=== PATIENT | male | born 1945 | race Caucasian/White ===

== ENCOUNTER 2020-06-05 12:22 | Outpatient (RCR) | payer OTHER, MEDICAID, SELFPAY ==
--- NOTE | 2020-06-05 14:17 | PTOPEVAL ---
Thank you for referring Levi Ramos to [facility].? No additional skilled therapy services are skilled due to unable to determine cause for recent falls based on balance or vestibular testing. Will hold chart open for 2 weeks for Levi to contact our facility if status changes. Please review, sign, date and return this plan of care MEGHANN. I agree with and certify that the following plan of care is medically necessary. Referring Physician Date Attending Provider: Miky Euceda DO Referring Provider: Miky Euceda DO *PT Outpatient Evaluation Start: 06/05/20 12:29 Freq: Status: Active Protocol: Document 06/05/20 12:30 CAP (Rec: 06/05/20 13:40 CAP [id number]) Therapy Assessment Status Assessment Status Assessment Status Evaluation Outpatient Past Medical History Past Medical History Source of Past Medical History Patient,Recalled from Previous Visit, Confirmed with Patient /Family Neurological History Hx Seizures Yes Hx Transient Ischemic Attacks (TIA) Yes: per pt: 2017 Cardiovascular History Hx Coronary Artery Disease Yes Hx Hypertension Yes Musculoskeletal History Hx Back Pain Yes: stenosis Hx Orthopedic Surgery Yes: arthroscopic knee surgery Evaluation Information Problem Diagnosis gt abnormalities Onset 6 months Cause unknown Additional Evaluation Detail he had a fall from bridge in 1995, denies any fractures, but herniated disc. Unsure of a head injury. Subjective Information Start of therapy pt states I Query Text:As Reported By Patient/ don't want to be here! Family States his last fall was 3 wks ago. He sometimes does not pick-up his foot when walking. 3-4 falls in the past 6 months. FAlls forward or to side, usually catching self with UE's. His falls usually occur outside. He works around the yard taking care of the animals, yardwork, hunting. States he will walk 3 miles a day on his [place]. Per , pt does not eat lunch when consistently during the day. Pain Assessment Timing of Pain Assessment Timing of Pain Assessment Assessment Self Report Self Report Pain Level 0 Pain Score Pain Score
== END 2020-07-02 12:50 | disposition home or self-care (01) ==
LOC: ANHPT 12:22
PROVIDERS: Family Provider Family Medicine; PCP Internal Medicine; Referring Provider Internal Medicine; Visit Provider Internal Medicine
DX: R26.89 Other abnormalities of gait and mobility (principal)
CPT/HCPCS: 97162; 97530

== ENCOUNTER 2020-07-29 09:27 | Outpatient (CLI) | payer OTHER, MEDICAID, SELFPAY ==
--- NOTE | ~2020-07-29 | NM_ITS ---
EXAMINATION: NM kiran stress w perfusion DATE: 07/29/2020 12:34 INDICATION: Chest pain TECHNIQUE: Rest images were obtained following intravenous administration of 10.3 mCi Tc99m tetrofosm in (Myoview). The patient was infused intravenously with Lexiscan (Regadenoson). Then, 31.1 mCi Tc99m tetrofosmin (Myoview) was administered intravenously, and stress images were obtained in supine posi tion. Additional post stress images were obtained in the prone position. Data was reconstructed into short axis and horizontal and vertical long axis SPECT images. Gated SPECT images were also obtained. COMPARISON: None. FINDINGS: There is a small mild reversible perfusion defect involving the apical inferior segment con sistent with ischemia. The additional regions of apparent decreased perfusion on the supine stress im ages normalize on prone imaging and/or on the gated images during systole. No nonreversible infarct. There is normal left ventricular chamber size, wall motion and ejection fraction. Left ventricular e jection fraction measures 58%. IMPRESSION: 1. Small mild reversible ischemia at the apical inferior segment. 2. Left ventricular ejection fraction measuring 58%. Reviewed, dictated and finalized at location B.
--- NOTE | 2020-07-29 10:00 | EST_ITS ---
Patient Info Name: Levi Ramos Age: 75 years : 1945 Gender: Male Ht: 73 in Wt: 180 lbs BSA: 2.05 m2 Exam Date: 07/29/2020 10:55 AM Exam Location: [facility] Stress Patient Status: Outpatient Admit Date: 07/29/2020 Staff Ordering Physician: Farooq Vasquez DO Attending Provider: Farooq Vasquez DO Exercise Technologist: Megan Cabrera RDCS Exercise Physician: Farooq Vasquez DO Exam Type: CA stress kiran w NM Study Info Indications R07.9 - Chest pain, unspecified A regadenoson stress test was performed. Summary 1. 1. Negative lexiscan stress test for ischemic ST changes by ECG criteria. 2. 2. Baseline hypertension. 3. 3. Nuclear scan to follow and will be reported separately. Please correlate with it. 4. 4. Patient informed of the above results. Protocol: Lexiscan Stress ECG Details Stage: REST Duration (min): 6 min : 0 sec HR (bpm): 49 SBP (mmHg): 147 DBP (mmHg): 76 Stage: REST Duration (min): 12 min : 0 sec HR (bpm): 48 SBP (mmHg): 147 DBP (mmHg): 76 Stage: STAGE 1 Duration (min): 0 min : 59 sec HR (bpm): 54 SBP (mmHg): 173 DBP (mmHg): 86 Stage: RECOVERY Duration (min): 1 min : 0 sec HR (bpm): 67 SBP (mmHg): 173 DBP (mmHg): 86 Stage: RECOVERY Duration (min): 2 min : 0 sec HR (bpm): 67 SBP (mmHg): 148 DBP (mmHg): 80 Stage: RECOVERY Duration (min): 3 min : 0 sec HR (bpm): 62 SBP (mmHg): 154 DBP (mmHg): 81 Stage: RECOVERY Duration (min): 4 min : 0 sec HR (bpm): 61 SBP (mmHg): 154 DBP (mmHg): 81 Stage: RECOVERY Duration (min): 4 min : 46 sec HR (bpm): 60 SBP (mmHg): 158 DBP (mmHg): 81 Rest HR: 48 bpm Peak HR: 68 bpm Rest Sys BP: 147 mmHg Peak Sys BP: 173 mmHg Max Pred HR: 145 bpm % Max Pred HR: 47 % Target HR: 123 bpm Max RPP: 11,764 bpm*mmHg Termination Reason: Completed protocol Cardiac Symptoms: Shortness of breath Total Time: 1 min : 0 sec Rest Wilcox BP: 76 mmHg Peak Wilcox BP: 86 mmHg Total Dose: 0.4 mg Resting ECG Sinus bradycardia, borderline ST-T wave abnormality in lat/high lat leads. Stress ECG No ST changes. Arrhythmias None. Report Signatures
== END 2020-07-29 09:28 | disposition home or self-care (01) ==
PROVIDERS: PCP Internal Medicine; Visit Provider Internal Medicine Cardiovascular Disease
DX: R07.89 Other chest pain (principal)
CPT/HCPCS: 78452; 93017; A9502; J2785

== ENCOUNTER 2020-12-27 00:49 | Day surgery (SDC) | payer OTHER, MEDICAID, SELFPAY ==
[2020-12-20 15:03] VITALS: BMI 24.5
[2020-12-27 11:15] VITALS: BP 148/56; PULSE 47; RESP 16; TEMP 36.6; O2SAT 97
--- NOTE | 2020-12-27 11:47 | WPDANESEPPF ---
Anes - Initial Pre Proc Eval Procedure: Operation Date: 12/27/20 13:00 Proposed Procedures p Excision of Right Posterior Neck Mass, Excision Right Elbow Skin Lesion - Fabrizio Proctor DO Date/Time: 12/27/20 11:47 Surgeon: Fabrizio Proctor DO Pre Op Diagnosis: right 3cm neck mass, right 1cm elbow skin lesion Patient Data Age: 75 Gender: M Height: 1.83 m Weight: 82 kg Allergies Allergy/AdvReac Type Severity Reaction Status Date / Time Iodinated Contrast Media Allergy Unknown hives Verified 12/20/20 14:52 Home Medications Medication Instructions Recorded Confirmed Type albuterol sulfate 90 mcg/actuation 1 inh INHALATION Q4H PRN 05/24/20 12/20/20 History aerosol inhaler aspirin 81 mg tablet,delayed 81 mg PO DAILY 05/24/20 12/20/20 History release atorvastatin 40 mg tablet 40 mg PO DAILY 05/24/20 12/20/20 History clopidogrel 75 mg tablet 75 mg PO DAILY 05/24/20 12/20/20 History losartan 100 mg tablet 100 mg PO QAM 05/24/20 12/20/20 History nitroglycerin 0.4 mg sublingual 0.4 mg SUBLINGUAL Q5M PRN 05/24/20 12/20/20 History tablet hydrocodone 10 mg-acetaminophen 1 tablet PO Q6H PRN #100 tablet 10/24/20 12/20/20 Rx 325 mg tablet amlodipine 10 mg PO QAM 12/20/20 12/20/20 History ciclopirox 1 applic TOPICAL QHS PRN 12/20/20 12/20/20 History isosorbide mononitrate 90 mg PO HS 12/20/20 12/20/20 History levetiracetam 500 mg PO BID 12/20/20 12/20/20 History metoprolol succinate 100 mg PO QAM 12/20/20 12/20/20 History tamsulosin 0.4 mg PO QAM 12/20/20 12/20/20 History Patient hx anesthesia problems: none Family hx anesthesia problems: none PMFSH Past Medical History Medical History Atherosclerosis of aorta BPH loc w urin obs/LUTS CAD in [place] artery Cervical radiculopathy due to degenerative joint disease of spine Coronary artery disease Essential hypertension Hyperlipidemia Lipoma Seizure disorder Tobacco abuse 2ppd Surgical History Surgical History S/P coronary artery stent placement Family History Family History Sibling Family history of malignant neoplasm Family history of diabetes mellitus in first degree relative Acute myocardial infarction Father Heart disease Diabetes mellitus Mother COPD (chronic obstructive pulmonary disease) Other Hypertension Social History Social History Smoking packs per day: 2 Smoking cigarettes per day: 40.0 Years smoked: 57 Smoking pack-years: 114.00 Smoking status: Current every day smoker Tobacco type: cigarettes Alcohol intake: former Alcohol use details: FORMER SOCIAL DRINKER Substance use: never Living arrangements: with family Additional living arrangements comments: Spiritual care concerns: No Anes - Eval Final PreProcedure Day of Procedure 12/27/20 11:47 Patient weight: normal Heart: regular rate and rhythm Lungs: decreased breath sounds Airway: Mallampati scale class 1 Neurological: alert and oriented Last oral intake: >/= 8 hours ASA classification: III Emergent: no Anesthetic plan: proceed Anesthesia type and monitoring: general GIVS and standard monitoring Informed Consent: The patient's anesthetic plan and its attendant risks and benefits were discussed with the patient/family/POA. Questions were solicited and answers provided to the satisfaction of the patient/family/POA.
[2020-12-27] MEDS: LACTATED RINGERS 1,000 ML 30 ML IV CONT (12:00)
--- NOTE | 2020-12-27 12:59 | WPDHPUPDATE1 ---
History and Physical Update Update Date/Time: 12/27/20 12:59 History and Physical has been reviewed, including an updated exam of the patient. There are NO changes in the patient's condition. Risks, benefits, and alternatives have been discussed and questions answered. Patient agrees to proceed with procedure.
--- NOTE | 2020-12-27 12:59 | PM.IMHP ---
H&P: HPI History of Present Illness Date/Time: 12/27/20 12:59 Chief Complaint: neck mass, right elbow skin lesion Narrative: 75 yo man presents for excision of neck mass and elbow skin lesion. The elbow skin lesion has slightly decreased in size, but it is still present. He would like to proceed with excision of both areas. Review of Systems Review of Systems: All systems reviewed & are unremarkable except as noted in HPI and below Constitutional: Constitutional: Denies chills, Denies fever(s), Denies headache(s) and Denies weight loss Eyes: Eyes: Denies change in vision ENT: Denies dizziness, Denies headache(s), Denies neck mass and Denies throat swelling Cardiovascular: Cardiovascular: Denies chest pain, Denies lightheadedness and Denies dyspnea Respiratory: Respiratory: Denies cough, Denies dyspnea and Denies wheezing Gastrointestinal: Gastrointestinal: Denies abdominal pain, Denies change in bowel habits, Denies nausea and Denies vomiting Genitourinary: Genitourinary: Denies hematuria and Denies dysuria Musculoskeletal: Musculoskeletal: Reports as per HPI Integumentary/Breasts: Skin/Breast: Reports as per HPI Neurologic: Denies dizziness and Denies headache(s) Allergic/Immunologic: Allergic/Immunologic: Denies throat swelling and Denies wheezing PMFSH Past Medical History Medical History Atherosclerosis of aorta BPH loc w urin obs/LUTS CAD in [place] artery Cervical radiculopathy due to degenerative joint disease of spine Coronary artery disease Essential hypertension Hyperlipidemia Lipoma Seizure disorder Tobacco abuse 2ppd Surgical History Surgical History S/P coronary artery stent placement Family History Family History Sibling Family history of malignant neoplasm Family history of diabetes mellitus in first degree relative Acute myocardial infarction Father Heart disease Diabetes mellitus Mother COPD (chronic obstructive pulmonary disease) Other Hypertension Social History Social History Smoking packs per day: 2 Smoking cigarettes per day: 40.0 Years smoked: 57 Smoking pack-years: 114.00 Smoking status: Current every day smoker Tobacco type: cigarettes Alcohol intake: former Alcohol use details: FORMER SOCIAL DRINKER Substance use: never Living arrangements: with family Additional living arrangements comments: Spiritual care concerns: No Meds Home Medications and Allergies Home Medications Medication Instructions Recorded Confirmed Type albuterol sulfate 90 mcg/actuation 1 inh INHALATION Q4H PRN 05/24/20 12/20/20 History aerosol inhaler aspirin 81 mg tablet,delayed 81 mg PO DAILY 05/24/20 12/27/20 History release atorvastatin 40 mg tablet 40 mg PO DAILY 05/24/20 12/20/20 History clopidogrel 75 mg tablet 75 mg PO DAILY 05/24/20 12/27/20 History losartan 100 mg tablet 100 mg PO QAM 05/24/20 12/20/20 History nitroglycerin 0.4 mg sublingual 0.4 mg SUBLINGUAL Q5M PRN 05/24/20 12/20/20 History tablet hydrocodone 10 mg-acetaminophen 1 tablet PO Q6H PRN #100 tablet 10/24/20 12/20/20 Rx 325 mg tablet amlodipine 10 mg PO QAM 12/20/20 12/27/20 History ciclopirox 1 applic TOPICAL QHS PRN 12/20/20 12/20/20 History isosorbide mononitrate 90 mg PO HS 12/20/20 12/27/20 History levetiracetam 500 mg PO BID 12/20/20 12/20/20 History metoprolol succinate 100 mg PO QAM 12/20/20 12/27/20 History tamsulosin 0.4 mg PO QAM 12/20/20 12/20/20 History Allergies Allergy/AdvReac Type Severity Reaction Status Date / Time Iodinated Contrast Media Allergy Unknown hives Verified 12/27/20 12:08 Vital Signs Vital Signs - 24 hr 12/27/20 11:15 Temperature 36.6 C Pulse Rate 47 L Respiratory Rate 16 Blood Pressu
[2020-12-27] MEDS: ceFAZolin 2 GM/D5W 50 ML 2 GM/50 ML BAG IVPB (13:11)
[2020-12-27] MEDS: BACITRACIN/POLYMYXIN B OINT 15 GM TUBE 1 APPLIC TOPICAL (13:49)
[2020-12-27 13:54] VITALS: BP 107/59; PULSE 61; RESP 14; O2SAT 96
--- NOTE | 2020-12-27 14:07 | W.PM.PROC2 ---
Procedure Note - Detailed Date of Procedure 12/27/20 Pre-op Diagnosis right 3cm neck mass, right 1cm elbow skin lesion Post-op Diagnosis same Procedure Performed 1. Excision 3 cm right posterior neck mass with layered closure 2. Excision of 1 cm right posterior elbow skin lesion Surgeon Fabrizio Proctor, DO Anesthesia MAC and local (1% lidocaine with epinephrine) Indications This is a 75-year-old man who presented with a lump on his right posterior neck that has increased in size and causes some discomfort. He was found to have a soft slightly mobile mass the right posterior neck just below the hairline. This appeared to be likely a lipoma but also could be a cyst. Decision was made to proceed with excision of 3 cm right posterior neck mass. Patient also has a skin lesion on his right elbow that is raised and irritated at times. He recently bumped this area and it bled some and has gone down in size slightly, but still appears slightly raised. Decision was made to proceed with excision of 1 cm right elbow skin lesion as well. Findings The right posterior neck mass appeared likely to be a lipoma. This was completely excised and sent to the lab for pathology. A layered closure of the right neck incision was performed using 3-0 Vicryl deep interrupted sutures followed by 4-0 Monocryl running subcuticular suture and glue. The right posterior elbow skin lesion was about 1 cm and appeared likely to be a cyst or granuloma. This was completely excised with no margins. It was sent to the lab for pathology and the skin was closed using 4-0 nylon simple interrupted sutures. Description of Procedure Procedure as well as risks, benefits, and alternatives were discussed with the patient. Written consent was obtained and placed in chart prior to procedure. He was brought back to the surgical suite. He was placed in left lateral decubitus position on the operating table. Time-out was done to confirm patient and procedure. IV sedation was administered by the anesthesia department. His right elbow and neck region was prepped and draped in sterile fashion using chlorhexidine prep. 1% lidocaine with epinephrine was infiltrated locally around the operative regions. A 3 cm transverse incision was made over the right posterior neck mass using a 15 blade scalpel. The mass was sharply dissected free from the surrounding subcutaneous attachments using a 15 blade scalpel. Electrocautery was also used to carefully dissect the mass off of the subcutaneous fascia. The mass was completely excised and sent to the lab for pathology. The wound bed was inspected and hemostasis appeared adequate. The deep tissue dermis was approximated using 3-0 Vicryl simple interrupted sutures. Skin was then approximated using 4-0 Monocryl running subcuticular suture. Exofin glue was then applied on top. An elliptical incision was made around the right posterior elbow skin lesion in a transverse fashion. The skin lesion was sharply excised completely using a 15 blade scalpel. The wound bed was inspected and hemostasis appeared adequate. The skin edges were then reapproximated using 4-0 nylon simple interrupted sutures. Bacitracin ointment was then applied followed by 2 x 2 gauze and Tegaderm dressing. The patient was then awakened from anesthesia and transferred to recovery. Estimated Blood Loss 5 Pathology yes (3 cm right posterior neck mass and 1 cm right elbow skin lesion) Complications No immediate complications Condition stable Disposition same day
[2020-12-27 14:10] VITALS: BP 116/64; PULSE 59; RESP 20
[2020-12-27 14:35] VITALS: BP 143/70; PULSE 56; RESP 20
== END 2020-12-27 14:45 | disposition home or self-care (01) ==
PROVIDERS: PCP Internal Medicine; Visit Provider Surgery
PROC: (CPT 11401; principal; 2020-12-27 13:00)
DX: L72.0 Epidermal cyst (principal); D17.0 Benign lipomatous neoplasm of skin and subcutaneous tissue of head, face and neck; Z79.51 Long term (current) use of inhaled steroids; Z79.82 Long term (current) use of aspirin; I70.0 Atherosclerosis of aorta; I25.10 Atherosclerotic heart disease of native coronary artery without angina pectoris; I10 Essential (primary) hypertension; E78.5 Hyperlipidemia, unspecified; N40.1 Benign prostatic hyperplasia with lower urinary tract symptoms; Z95.5 Presence of coronary angioplasty implant and graft; F17.210 Nicotine dependence, cigarettes, uncomplicated
CPT/HCPCS: 11401; 21552; 81001; 88304; 88305; 99283; A9270; J0690; J2704; J3010; J7120

== ENCOUNTER 2020-12-27 20:40 | Emergency (ER) | payer OTHER, MEDICAID, SELFPAY ==
[2020-12-27 21:24] VITALS: BP 191/95; PULSE 61; RESP 18; TEMP 36.3; O2SAT 97
--- NOTE | 2020-12-27 21:43 | ED.GENADULT ---
HPI - General Adult General Chief complaint: Urogenital-Male Stated complaint: trouble urinating after procedure Time Seen by Provider: 12/27/20 21:38 History of Present Illness HPI narrative: Patient 75-year-old gentleman who presents the emergency department with chief complaint of urinary retention. Patient had a surgical procedure done today and since discharge has not been able to urinate on his own. Patient reports he has severe pressure in his bladder area reports that is not improved by anything. Patient reports he called the surgeon on-call for his surgeon this evening and recommended that he come to the emergency department for catheter placement. Related Data Home Medications Medication Instructions Recorded Confirmed albuterol sulfate 90 mcg/actuation 1 inh INHALATION Q4H PRN 05/24/20 12/20/20 aerosol inhaler aspirin 81 mg tablet,delayed 81 mg PO DAILY 05/24/20 12/27/20 release atorvastatin 40 mg tablet 40 mg PO DAILY 05/24/20 12/20/20 clopidogrel 75 mg tablet 75 mg PO DAILY 05/24/20 12/27/20 losartan 100 mg tablet 100 mg PO QAM 05/24/20 12/20/20 nitroglycerin 0.4 mg sublingual 0.4 mg SUBLINGUAL Q5M PRN 05/24/20 12/20/20 tablet amlodipine 10 mg PO QAM 12/20/20 12/27/20 ciclopirox 1 applic TOPICAL QHS PRN 12/20/20 12/20/20 isosorbide mononitrate 90 mg PO HS 12/20/20 12/27/20 levetiracetam 500 mg PO BID 12/20/20 12/20/20 metoprolol succinate 100 mg PO QAM 12/20/20 12/27/20 tamsulosin 0.4 mg PO QAM 12/20/20 12/20/20 Allergies Allergy/AdvReac Type Severity Reaction Status Date / Time Iodinated Contrast Media Allergy Unknown hives Verified 12/27/20 12:08 Review of Systems Review of Systems: A 10 system review of systems was completed on the patient and is negative except for what is stated in the HPI. Nursing and ancillary documentation was reviewed. [facility] Past Medical History Medical History Atherosclerosis of aorta BPH loc w urin obs/LUTS CAD in [place] artery Cervical radiculopathy due to degenerative joint disease of spine Coronary artery disease Essential hypertension Hyperlipidemia Lipoma Seizure disorder Tobacco abuse 2ppd Surgical History Surgical History S/P coronary artery stent placement Family History Family History Sibling Family history of malignant neoplasm Family history of diabetes mellitus in first degree relative Acute myocardial infarction Father Heart disease Diabetes mellitus Mother COPD (chronic obstructive pulmonary disease) Other Hypertension Social History Social History Smoking packs per day: 2 Smoking cigarettes per day: 40.0 Years smoked: 57 Smoking pack-years: 114.00 Smoking status: Current every day smoker Tobacco type: cigarettes Alcohol intake: former Alcohol use details: FORMER SOCIAL DRINKER Substance use: never Additional living arrangements comments: Spiritual care concerns: No Exam Narrative: GENERAL: Well-appearing, well-nourished, and in no acute distress. HEAD: Normocephalic, atraumatic. EYES: PERRLA and EOMI. ENT: Nares clear, no rhinorrhea or epistaxis. Mucous membranes moist. NECK: Supple. CHEST: Clear to auscultation. No respiratory distress. HEART: Regular rate and rhythm. No murmur heard. Normal peripheral pulses. ABDOMEN: Soft, nontender, nondistended, normal active bowel sounds. EXTREMITIES: Normal range of motion. No edema. SKIN: Warm, dry, no rash. NEURO: No focal deficits. Alert and oriented x3. PSYCH: Normal mood and affect. Course Vital Signs Vital signs: Vital Signs Temperature 36.3 C L 12/27/20 21:24 Pulse Rate 61 12/27/20 21:24 Respiratory Rate 18 12/27/20 21:24 Blood Pressure 191/95 H
[2020-12-27 22:38] VITALS: BP 116/58; PULSE 109; RESP 18; O2SAT 94
[2020-12-27 22:47] LABS: Add Urine Microscopic? YES; Appearance Urine Cloudy (Clear); Bacteria Urine Trace /hpf; Bilirubin Urine Negative (Negative); Blood Urine 3+ (Negative); Color Urine Red (Yellow); Glucose Urine UA Negative (Negative); Ketones Urine Negative (Negative); Leukocyte Esterase Ur Negative LEU/UL (Negative); Nitrate Urine Negative (Negative); Protein Urine 1+ mg/dL (Negative); RBC Urine >75 /hpf (0-2); Specific Grav Ur 1.011 (1.001-1.035); Urobilinogen Urine Negative mg/dL (<2.0)
[2020-12-27 23:33] VITALS: BP 130/63; PULSE 52; RESP 16; TEMP 36.8; O2SAT 95
== END 2020-12-27 23:35 | disposition home or self-care (01) ==
LOC: ANHED 23:05
PROVIDERS: Emergency Provider Emergency Medicine; PCP Internal Medicine
DX: R33.9 Retention of urine, unspecified (principal); I25.10 Atherosclerotic heart disease of native coronary artery without angina pectoris; I10 Essential (primary) hypertension; E78.5 Hyperlipidemia, unspecified; G40.909 Epilepsy, unspecified, not intractable, without status epilepticus; F17.210 Nicotine dependence, cigarettes, uncomplicated; Z98.890 Other specified postprocedural states
CPT/HCPCS: 81001; 99283

== ENCOUNTER 2021-01-23 09:25 | Outpatient (CLI) | payer OTHER, MEDICAID, SELFPAY ==
--- NOTE | ~2021-01-23 | CT_ITS ---
EXAMINATION: CT abdomen pelvis wo/w con EXAM DATE: 01/23/2021 10:50 INDICATION: Gross hematuria TECHNIQUE: Spiral CT of the abdomen and pelvis was performed without contrast. The patient was then injected with small bolus intravenous Omnipaque 350, followed by delay of approximately 10 minutes to allow collecting system to opacify. A post contrast scan abdomen and pelvis was performed during inj ection of remaining contrast. A total of 130 cc intravenous contrast was administered. The dose-arthur th product (DLP) for this examination was 1279.39 mGy-cm. The exposure was tailored according to pat ient size (auto mA exposure control), and iterative reconstruction (ASIR) was used as additional dose reduction technique. Comparison is made to prior examination from 2004. FINDINGS: There is incompletely imaged left lower lobe nodule measuring 2.0 cm, some regions of fat attenuation suggesting this could be benign mass such as hamartoma. Malignancy not excludable; recomm end PET/CT for further evaluation. There is no hydronephrosis or nephrolithiasis. The kidneys enhance symmetrically. There are no susp icious renal lesions. The calyces and opacified portions of ureters are unremarkable, without fillin g defects or focal suspicious strictures. Multiple small bladder stones layering posteriorly within the bladder. No focal bladder wall thickening. There is moderate prostatomegaly, prostate measuring 5.5 cm transverse dimension. There is a hypodensity in the liver measuring 1.5 cm consistent with a cyst. There is 3.8 cm left ad renal gland lesion which is low density consistent with adenoma. This has increased in size from 3.0 cm in 2005. Some punctate pancreatic calcifications, chronic pancreatitis. Spleen, right adrenal glan d are unremarkable. Gallbladder is unremarkable. No biliary obstruction. There is no retroperitone al or pelvic lymphadenopathy. There is mild scattered arteriosclerotic disease. The appendix is normal. The stomach and small bowel are unremarkable. There is moderate amount of c olonic stool. No free intraperitoneal gas. Small pericardial effusion. There are no osteoblastic or osteolytic lesions identified. IMPRESSION: 1. Left lower lobe nodule, could be hamartoma given suspected regions of fat attenuation but incompl etely imaged. PET CT recommended. 2. Moderate prostatomegaly. Small bladder stones. Otherwise unremarkable system. 3. 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 4. Increase in size of left adrenal gland lesion, likely adenoma but sometimes adrenal masses are re sected if they reach this size. 5. Chronic pancreatitis. 6. Small pericardial effusion. Reviewed, dictated and finalized at location A. IMPRESSION: 1. Left lower lobe nodule, could be hamartoma given suspected regions of fat a ttenuation but incompletely imaged. PET CT recommended. 2. Moderate prostatomegaly. Small bladder stones. Otherwise unremarkable sy stem. 3. 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 4. Increase in size of left adrenal gland lesion, likely adenoma but sometimes adrenal masses are resected if they reach this size. 5. Chronic pancreatitis. 6. Small pericardial effusion.
--- NOTE | ~2021-01-23 | XR_ITS ---
EXAMINATION: XR abdomen/kub 1V EXAM DATE: 01/23/2021 10:15 INDICATION: Gross Hematuria TECHNIQUE: Frontal projection of the upper abdomen, frontal projection lower abdomen/pelvis for inter pretation. Correlation is made to CT urogram same day. FINDINGS: Multiple pelvic calcifications, combination of phleboliths and probably the bladder stones identified on CT. No suspicious calcifications overlying the renal contours. There is moderate to la rge amount of bowel gas over the abdomen, but nonobstructive bowel gas pattern. There are bony degene rative changes. IMPRESSION: Pelvic calcifications, bladder stones and phleboliths. Reviewed, dictated and finalized at location A.
[2021-01-23 10:32] LABS: Estimated Glomerular Filt Rate > 60
== END 2021-01-23 09:26 | disposition home or self-care (01) ==
LOC: ANHIMG 09:29
PROVIDERS: PCP Internal Medicine; Visit Provider Nurse Practitioner Adult Health
DX: R31.0 Gross hematuria (principal); R91.1 Solitary pulmonary nodule; N40.0 Benign prostatic hyperplasia without lower urinary tract symptoms; K86.1 Other chronic pancreatitis; I31.3 Pericardial effusion (noninflammatory); I71.4 Abdominal aortic aneurysm, without rupture; N21.0 Calculus in bladder
CPT/HCPCS: 74018; 74178; Q9967

== ENCOUNTER 2021-02-18 11:58 | Outpatient (CLI) | payer OTHER, MEDICAID, SELFPAY ==
--- NOTE | ~2021-02-18 | PE_ITS ---
EXAMINATION: PET skull to mid thigh DATE: 02/18/2021 14:00 INDICATION: Lung nodule TECHNIQUE: Blood glucose level was 112 mg/dL. 10.021 mCi of 18-fluorodeoxyglucose (18-FDG) was admini stered i.v. Low dose computed tomography (CT) images were acquired from the base of the brain to the proximal thighs for attenuation correction and anatomic localization. Positron emission tomography (P ET) images were acquired in the same distribution beginning 65 minutes after injection. Images includ ing fused PET/CT images were reconstructed in axial, coronal, and sagittal planes. Automated exposure control technique was employed. The dose-length product was 496.85mGy-cm. COMPARISON: CT abdomen pelvis dated 02/08/[address] dated 11/10/2004 FINDINGS: Head/neck: There is symmetric increased activity in the oral cavity, palatine tonsils, parotid glands, submandi bular glands, laryngeal muscles and ocular muscles without CT correlate, likely physiologic. There is enlargement of the thyroid gland with relatively diffuse mild increased uptake. There is an approxim ately 3 cm more intensely FDG avid nodule at the inferior pole of the right thyroid with maximal SUV of 5.1. No pathologically enlarged cervical lymphadenopathy or suspicious foci of increased FDG uptak e in the visualized head or neck. Chest: Mild upper lobe predominant emphysema with moderate chronic biapical pleural-parenchymal scarring. 2. 5 x 1.9 x 1.4 cm low density mass in the anterior left lower lobe mass which measures less than simpl e fluid attenuation which is without evident FDG activity. Assessment of attenuation is however somew hat limited by motion artifact. No pleural effusion. Heart size is normal. Atherosclerotic coronary a rtery calcification. Persistent small pericardial effusion. Atherosclerotic calcific lesion along the normal caliber thoracic aorta. No pathologically enlarged or FDG avid thoracic lymphadenopathy. Abdomen/pelvis/proximal thighs: Physiologic renal accumulation and excretion of FDG activity in the kidneys, bladder and along portio ns of ureters. Multiple small calcified bladder stones in the dependent bladder. Normal degree and he terogenous pattern of increased uptake throughout the liver without radiologic correlate or dominant FDG avid lesion. There is a 1.6 cm low-attenuation FDG photopenic cysts in the left hepatic lobe. The gallbladder, pancreas, spleen and right adrenal gland are normal. 3.7 cm left adrenal mass the major ity with low-attenuation consistent with adenoma however there does appear to be an approximately 1.5 cm region of higher soft tissue density but which is also without increased FDG uptake to suggest ma lignancy. Moderate uptake in the stomach and mild uptake scattered throughout the bowels without radi ologic correlate, also likely physiologic. Normal appendix. Prostatomegaly. Large photopenic right hy drocele. Small fat-containing left inguinal hernia. No other abnormal foci of increased FDG uptake or pathologically enlarged lymphadenopathy in the abdomen, pelvis or proximal thighs. Fusiform infraren al abdominal aortic aneurysm measuring up to 4.2 cm in maximal diameter. Musculoskeletal: No suspicious lytic, blastic or FDG avid bone lesions. IMPRESSION: 1. No FDG activity associated with a 2.5 cm low-density mass in the left lower lobe which favors a be nign etiology with CT attenuation suggesting either hamartoma or lipoid pneumonia. 2. Goiter with an approximately 3 cm moderately FDG avid mass in the inferior right thyroid lobe. Rec ommend ultrasound-guided biopsy. 3. 4.2 cm fusiform infrarenal abdominal aortic aneurysm. 4. Chronic 3.7 cm left adrenal mass the majority with low-attenuation and which is without increased FDG activity consistent with an adenoma. 5. Prostatomegaly and a few bladder stones. 6. Large right hydrocele. 7. Unchanged small pericardial effusion.
[2021-02-18 12:27] LABS: Glucose Point of Care 112 mg/dl (65-105)
== END 2021-02-18 11:59 | disposition home or self-care (01) ==
PROVIDERS: PCP Internal Medicine; Visit Provider Internal Medicine
DX: R91.8 Other nonspecific abnormal finding of lung field (principal); E27.9 Disorder of adrenal gland, unspecified; N43.3 Hydrocele, unspecified; I31.3 Pericardial effusion (noninflammatory); I71.4 Abdominal aortic aneurysm, without rupture; E04.9 Nontoxic goiter, unspecified
CPT/HCPCS: 78815; A9552

== ENCOUNTER 2021-08-13 07:22 | Outpatient (CLI) | payer OTHER, MEDICAID, SELFPAY ==
--- NOTE | ~2021-08-13 | US_ITS ---
EXAMINATION: US aorta DATE: 08/13/2021 07:57 INDICATION: Abdominal aortic aneurysm. TECHNIQUE: Grayscale, color Doppler, and pulsed Doppler images of the aorta and common iliac arteries were obtained. COMPARISON: Ultrasound aorta 09/30/2017, CT abdomen and pelvis 01/23/2021 FINDINGS: The aorta demonstrates a 4.2 cm fusiform infrarenal aneurysm. The right common iliac artery measures 1.2 cm. The left common iliac artery measures 1.2 cm. IMPRESSION: 1. 4.2 cm fusiform infrarenal aortic aneurysm, stable from 01/23/2021. Reviewed, dictated and finalized at location A.
== END 2021-08-13 07:23 | disposition home or self-care (01) ==
LOC: ANHIMG 07:26
PROVIDERS: PCP Internal Medicine; Visit Provider Internal Medicine
DX: I71.4 Abdominal aortic aneurysm, without rupture (principal)
CPT/HCPCS: 76775

== ENCOUNTER 2021-12-16 09:45 | Emergency (ER) | payer OTHER, MEDICAID, SELFPAY ==
--- NOTE | ~2021-12-16 | XR_ITS ---
XR abdomen/kub 1V 12/16/2021 11:12 INDICATION: Possible kidney stone. Blood in urine. TECHNIQUE: KUB COMPARISON: 01/23/2021 FINDINGS: Bowel gas pattern is normal. There is no evidence of free air, mass, organomegaly, ascites or obstruction. No abnormal calculi are seen. The kidneys are obscured by overlying bowel content. The bones appear intact. The pelvis is incompletely included. There are pelvic phleboliths. IMPRESSION: 1: No acute abdominal abnormality identified. Reviewed, dictated and finalized at location A.
[2021-12-16 09:57] VITALS: BP 154/56; PULSE 51; RESP 18; TEMP 35.9; O2SAT 99
--- NOTE | 2021-12-16 10:46 | ED.MALEGU ---
HPI - Male Genitourinary General Chief complaint: Urogenital-Male Stated complaint: Kidney Infection Time Seen by Provider: 12/16/21 10:45 Source: patient, family, RN notes reviewed and old records reviewed Mode of arrival: ambulatory Limitations: no limitations History of Present Illness HPI Narrative: 76-year-old male accompanied by presents to express care with 3 to 4-day duration of left flank pain wants to be checked for UTI. Patient reports that he has had no fever, chills or sweats, denies burning with urination or pain with urination, no testicle pain, no urinary discharge. Patient reports that he has not had any recent injury to his back. Patient reports that he has had problems urinating after surgery before and had to have a catheter and he has also had incidence of hematuria in the past, patient is on Plavix daily for heart stent and CAD. Patient is poor historian, at bedside and is more informative of his past medical history. MD Complaint: other (left flank) Onset (ago): day(s) (4) Severity scale (1-10): 4 Related Data Home Medications Medication Instructions Recorded Confirmed albuterol sulfate 90 mcg/actuation 1 inh inhalation Q4H PRN Dyspnea 05/24/20 12/16/21 aerosol inhaler aspirin 81 mg tablet,delayed 81 mg PO DAILY 05/24/20 12/16/21 release (Adult Aspirin Regimen) nitroglycerin 0.4 mg sublingual 0.4 mg sublingual Q5M PRN Chest 05/24/20 12/16/21 tablet Pain levetiracetam 500 mg tablet 500 mg PO BID 12/20/20 12/16/21 finasteride 5 mg tablet 5 mg PO DAILY 01/31/21 12/16/21 Allergies Allergy/AdvReac Type Severity Reaction Status Date / Time Iodinated Contrast Media Allergy Unknown hives Verified 12/16/21 12:11 Review of Systems Review of Systems: CONSTITUTIONAL: Denies fever, chills, or sweats. EYES: Denies visual changes, redness, or discharge. ENT: Denies rhinorrhea, congestion, sore throat, or otalgia. CARDIOVASCULAR: Denies chest pain, palpitations, or edema. RESPIRATORY: Denies cough or dyspnea. GASTROINTESTINAL: Denies abdominal pain, nausea, vomiting, or diarrhea. GENITOURINARY: Denies dysuria or hematuria. SKIN: Denies rash or itching. MUSCULOSKELETAL: Positive for left flank pain, chronic back pain , joint pain, or myalgia. NEUROLOGIC: Denies headache, numbness, or weakness. PSYCHIATRIC: Denies anxiety or depression. All systems reviewed & are unremarkable except as noted in HPI and below PMFSH Past Medical History Medical History Atherosclerosis of aorta BPH loc w urin obs/LUTS CAD in [place] artery Cervical radiculopathy due to degenerative joint disease of spine Coronary artery disease Essential hypertension Hyperlipidemia Lipoma Seizure disorder Tobacco abuse 2ppd Surgical History Surgical History H/O excision of mass 12/27/20 Excision 3 cm right posterior neck mass with layered closure 2. Excision of 1 cm right posterior elbow skin lesion H/O inguinal hernia repair right S/P coronary artery stent placement Family History Family History Sibling Family history of malignant neoplasm Family history of diabetes mellitus in first degree relative Acute myocardial infarction Father Heart disease Diabetes mellitus Mother COPD (chronic obstructive pulmonary disease) Other Hypertension Social History Social History Smoking packs per day: 2 Smoking cigarettes per day: 40.0 Years smoked: 57 Smoking pack-years: 114.00 Smoking status: Current every day smoker Tobacco type: cigarettes Alcohol intake: former Alcohol use details: FORMER SOCIAL DRINKER Substance use: never Additional living arrangements comments: Spiritual care concerns: No Comments At time of signature agree with nursing diagnosis of past
== END 2021-12-16 11:46 | disposition short-term general hospital (02) ==
PROVIDERS: Emergency Provider Registered Nurse; PCP Internal Medicine
DX: R10.9 Unspecified abdominal pain (principal); F17.210 Nicotine dependence, cigarettes, uncomplicated; I70.0 Atherosclerosis of aorta; I25.10 Atherosclerotic heart disease of native coronary artery without angina pectoris; I10 Essential (primary) hypertension; E78.5 Hyperlipidemia, unspecified; G40.909 Epilepsy, unspecified, not intractable, without status epilepticus; N40.1 Benign prostatic hyperplasia with lower urinary tract symptoms; N13.8 Other obstructive and reflux uropathy
CPT/HCPCS: 74018; 81003; 99213; G0463

== ENCOUNTER 2021-12-16 12:04 | Emergency (ER) | payer OTHER, MEDICAID, SELFPAY ==
[2021-12-16] VITALS (7 sets, daily range): BP systolic 134–157; BP diastolic 54–72; PULSE 49–91; RESP 14–18; TEMP 36.4; O2SAT 95–100
--- NOTE | ~2021-12-16 | CT_ITS ---
EXAMINATION: CT abdomen pelvis wo con DATE: 12/16/2021 12:51 INDICATION: Left flank pain. Kidney stone. TECHNIQUE: Computed tomography (CT) of the abdomen and pelvis was performed without intravenous contr ast. Automated exposure control and iterative reconstruction technique were employed. Exam dose: 466 .60 mGy-cm total exam DLP. COMPARISON: 12/16/2021 KUB 01/23/2021 CT abdomen pelvis FINDINGS: The lung bases are clear of infiltrate or consolidation. Normal heart size. Trace pericardial fluid. No pleural effusions. Stable 1.7 cm medial segment left hepatic cyst and very small inferior right hepatic probable cyst. T he liver is otherwise unremarkable. The gallbladder is present. No gallbladder wall thickening or pericholecystic fluid or fat stranding. No bile duct or pancreatic duct dilatation. There are multiple pancreatic calcifications consistent with chronic pancreatitis. Stable approximately 3.8 cm left adrenal myelolipoma or adenoma. Normal right adrenal gland. No renal mass lesion. Approximately 5 mm calculus is noted at the left ureterovesical junction. There is minimal if any lef t hydroureteronephrosis. Stones are noted at the dependent aspect of the urinary bladder. Prominent prostate enlargement and occasional prostate calcifications. Approximately 4.1 x 4.3 cm infrarenal fusiform abdominal aortic aneurysm. Prominent calcification of the iliac and femoral arteries. No intraperitoneal or retroperitoneal or pelvic mass lesion or adenopathy or ascites is noted otherwi se. Small fat-containing left inguinal hernia. Normal appendix. There is a prominent amount of fecal material within the colon but no bowel obstruct ion or bowel wall thickening, pneumatosis or intraperitoneal free air. Multilevel degenerative disc disease of the thoracic and lumbar spine, most pronounced at L5-S1, with mild retrolisthesis level. No suspicious osteolytic or osteoblastic lesions are noted. IMPRESSION: 5 mm left ureterovesical junction calculus Multiple bladder calculi Stable hepatic cysts Stable 3.8 cm left adrenal mass Prominent prostate enlargement Reviewed, dictated and finalized at Location A. Reviewed, dictated and finalized at location B.
[2021-12-16 12:46] LABS: Appearance Urine Slightly Cloudy (Clear); Bilirubin Urine Negative (Negative); Blood Urine 1+ (Negative); Color Urine Yellow (Yellow); Glucose Urine UA Negative (Negative); Ketones Urine Negative (Negative); Leukocyte Esterase Ur Negative LEU/UL (Negative); Nitrate Urine Negative (Negative); Protein Urine Negative (Negative); Urobilinogen Urine 0.2 mg/dL (<2.0); pH Urine 7.5 (5.0-9.0)
--- NOTE | 2021-12-16 12:46 | PC.NURSE ---
pt to CT at this time.
[2021-12-16 12:49] LABS: Basophils Absolute Auto 0.1 K/mm3 (0.0-0.1); Basophils Percent Auto 1.3 % (0.2-1.2); Eosinophils Absolute Auto 0.3 K/mm3 (0-0.3); Eosinophils Percent Auto 3.2 % (0-4.4); Hematocrit 49.1 % (42.0-52.0); Hemoglobin 15.4 g/dL (14.0-18.0); Immature Granulocyte Absolute 0.03 K/mm3 (0.00-0.031); Immature Granulocyte Percent A 0.4 % (0-0.5); Lymphocytes Absolute Auto 1.52 K/mm3 (0.9-3.2); Lymphocytes Percent Auto 17.8 % (18.3-44.2); Mean Corpuscular HGB Conc 31.4 g/dl (32-36); Mean Corpuscular Hemoglobin 27.2 pg (26-34); Mean Corpuscular Volume 86.6 fl (80-100); Mean Platelet Volume 10.3 fl (7.4-10.4); Monocytes Absolute Auto 0.9 K/mm3 (0.1-0.6); Monocytes Percent Auto 10.2 % (2.6-8.5); Neutrophils Absolute Auto 5.8 K/mm3 (1.3-6.7); Neutrophils Percent Auto 67.1 % (45.5-73.1); Platelet Count Result 200 k/mm3 (150-375); Red Blood Count 5.67 M/mm3 (4.6-6.20); Red Cell Distribution Width 14.3 % (11.5-14.5); White Blood Count 8.6 K/mm3 (4.5-10.0)
[2021-12-16] MEDS: SODIUM CHLORIDE 0.9% IV 1,000 ML 150 ML IV CONT (12:53)
[2021-12-16 12:56] LABS: Alanine Aminotransferase 14 U/L (6-50); Albumin Level 4.3 g/dL (3.5-5.1); Alkaline Phosphatase 127 U/L (38-126); Anion Gap 7 mmol/L (8-16); Aspartate Amino Transferase 25 U/L (17-59); Bilirubin,Total 0.6 mg/dL (0.2-1.3); Blood Urea Nitrogen 12 mg/dL (9-20); Carbon Dioxide 27 mmol/L (22-30); Chloride 105 mmol/L (98-107); Estimated CRCL calculation 77 ml/min; Estimated Glomerular Filt Rate > 60; Glucose 103 mg/dL (65-110); Potassium 4.1 mmol/L (3.4-5.0); Sodium 139 mmol/L (137-145)
[2021-12-16 13:02] LABS: Amorphous Sediment Urine Few; Mucus Urine Rare /lpf; Squamous Epithelial Cell Urine Rare /hpf (Few)
[2021-12-16 13:03] LABS: Add Urine Microscopic? YES
[2021-12-16 13:13] LABS: INR 1.2; Prothrombin Time 14.3 Seconds (11.1-14.7)
[2021-12-16] MEDS: KETOROLAC 15 MG/ML VIAL (*BKC) IV PUSH (13:53)
--- NOTE | 2021-12-16 13:54 | ED.GENADULT ---
HPI - General Adult General Chief complaint: Urogenital-Male Stated complaint: Flank pain, Blood in urine Time Seen by Provider: 12/16/21 12:16 Source: patient and family Mode of arrival: ambulatory Limitations: no limitations History of Present Illness HPI narrative: 76-year-old with a history of hypertension, CAD, seizure disorder, COPD here with complaints of sudden onset of left flank pain radiating into her left lower abdomen started this morning. He also states that he noticed some blood in his urine. Patient denies any fever or chills. He denies dysuria. No previous history of kidney stones. Related Data Home Medications Medication Instructions Recorded Confirmed albuterol sulfate 90 mcg/actuation 1 inh inhalation Q4H PRN Dyspnea 05/24/20 12/16/21 aerosol inhaler aspirin 81 mg tablet,delayed 81 mg PO DAILY 05/24/20 12/16/21 release (Adult Aspirin Regimen) nitroglycerin 0.4 mg sublingual 0.4 mg sublingual Q5M PRN Chest 05/24/20 12/16/21 tablet Pain levetiracetam 500 mg tablet 500 mg PO BID 12/20/20 12/16/21 finasteride 5 mg tablet 5 mg PO DAILY 01/31/21 12/16/21 tamsulosin 0.4 mg capsule 0.4 mg PO DAILY 12/16/21 12/16/21 Allergies Allergy/AdvReac Type Severity Reaction Status Date / Time Iodinated Contrast Media Allergy Unknown hives Verified 12/16/21 12:11 Review of Systems Review of Systems: All systems reviewed & are unremarkable except as noted in HPI and below Constitutional: Constitutional: Reports no additional constitutional complaints Eyes: Eyes: Reports no additional eye complaints ENT: Reports system reviewed and no additional complaints, except as documented Cardiovascular: Cardiovascular: Reports no additional cardiovascular complaints Respiratory: Respiratory: Reports no additional respiratory complaints Gastrointestinal: Gastrointestinal: Reports as per HPI Genitourinary: Genitourinary: Reports hematuria Musculoskeletal: Musculoskeletal: Reports no additional musculoskeletal complaints Integumentary/Breasts: Skin/Breast: Reports system reviewed and no additional complaints, except as docu Neurologic: Reports system reviewed and no additional complaints, except as documented PMFSH Past Medical History Medical History Atherosclerosis of aorta BPH loc w urin obs/LUTS CAD in [place] artery Cervical radiculopathy due to degenerative joint disease of spine Coronary artery disease Essential hypertension Hyperlipidemia Lipoma Seizure disorder Tobacco abuse 2ppd Surgical History Surgical History H/O excision of mass 12/27/20 Excision 3 cm right posterior neck mass with layered closure 2. Excision of 1 cm right posterior elbow skin lesion H/O inguinal hernia repair right S/P coronary artery stent placement Family History Family History Sibling Family history of malignant neoplasm Family history of diabetes mellitus in first degree relative Acute myocardial infarction Father Heart disease Diabetes mellitus Mother COPD (chronic obstructive pulmonary disease) Other Hypertension Social History Social History Smoking packs per day: 2 Smoking cigarettes per day: 40.0 Years smoked: 57 Smoking pack-years: 114.00 Smoking status: Current every day smoker Tobacco type: cigarettes Alcohol intake: former Alcohol use details: FORMER SOCIAL DRINKER Substance use: never Additional living arrangements comments: Spiritual care concerns: No Exam Narrative: GENERAL: Well-appearing, well-nourished, and in no acute distress. HEAD: Normocephalic, atraumatic. EYES: PERRLA and EOMI. NECK: Supple. CHEST: Clear to auscultation. No respiratory distress. HEART: Regular rate and rhythm. No murmur heard. Normal periph
== END 2021-12-16 14:36 | disposition home or self-care (01) ==
PROVIDERS: Emergency Provider Family Medicine; PCP Internal Medicine
DX: N20.9 Urinary calculus, unspecified (principal); I25.10 Atherosclerotic heart disease of native coronary artery without angina pectoris; I10 Essential (primary) hypertension; J44.9 Chronic obstructive pulmonary disease, unspecified; G40.909 Epilepsy, unspecified, not intractable, without status epilepticus; I70.0 Atherosclerosis of aorta; N40.1 Benign prostatic hyperplasia with lower urinary tract symptoms; N13.8 Other obstructive and reflux uropathy; E78.5 Hyperlipidemia, unspecified; Z95.5 Presence of coronary angioplasty implant and graft; F17.210 Nicotine dependence, cigarettes, uncomplicated; K76.89 Other specified diseases of liver; E27.8 Other specified disorders of adrenal gland
CPT/HCPCS: 36415; 74018; 74176; 80053; 81001; 81003; 85025; 85610; 96361; 96374; 99284; J1885; J7030

== ENCOUNTER 2022-02-18 08:06 | Outpatient (CLI) | payer OTHER, MEDICAID, SELFPAY ==
--- NOTE | ~2022-02-18 | US_ITS ---
EXAMINATION: US aorta DATE: 02/18/2022 09:00 INDICATION: Abdominal aortic aneurysm without rupture TECHNIQUE: Grayscale, color Doppler, and pulsed Doppler images of the aorta and common iliac arteries were obtained. COMPARISON: None. FINDINGS: The proximal aorta measures 2.6 cm in maximal AP diameter 2.0 cm in the proximal to mid aorta. More d istally there is a bilobed fusiform aneurysm in the mid to distal aorta the more proximal component m easuring 3.4 cm in maximal AP diameter with intermittent tapering to 2.5 cm before reexpanding to 4.5 cm in the distal aorta. Previously the aorta measured up to 4.2 cm in maximal diameter. The right co mmon iliac artery measures 1.2 cm. The left common iliac artery measures 1.2 cm. IMPRESSION: 1. Slight increase in size of a now 4.5 cm infrarenal abdominal aortic aneurysm. Reviewed, dictated and finalized at location A. IMPRESSION: 1. Slight increase in size of a now 4.5 cm infrarenal abdominal aortic aneurysm .
== END 2022-02-18 08:07 | disposition home or self-care (01) ==
PROVIDERS: PCP Internal Medicine; Visit Provider Internal Medicine
DX: I71.40 Abdominal aortic aneurysm, without rupture, unspecified (principal)
CPT/HCPCS: 76775

== ENCOUNTER 2022-08-12 01:31 | Day surgery (SDC) | payer OTHER, MEDICAID, SELFPAY ==
[2022-08-06 10:32] VITALS: BMI 23.8
--- NOTE | 2022-08-06 10:41 | PC.NURSE ---
Report to the Outpatient Waiting Room, entrance under the green pavilion located off [facility], at time _0730 on date ___08/12/22____. Planned Procedure Time: ___929____. Time changes happen often and if your time is changed the preop area will call you the afternoon before. - You and your visitor will be asked to self-screen and do not enter if you have any COVID symptoms. - Only one visitor is requested with a max of two and NO children visitors are allowed at this time. - The patient visitor may be requested to leave or wait in car when not with patient due to distancing restrictions. - A mask is optional within the hospital at this time. Patients may have clear liquids (water, carbonated beverages, clear teas, apple juice) until 3 hours prior to surgery (0630 AM) with a maximum of 20 ounces. - No food from midnight until time of surgery - Infants may have breast milk until 4 hours before surgery, formula 6 hours prior to surgery. - Children will be allowed to drink immediately following surgery. If applicable, please bring a bottle or sippy cup to assist with drinking. Juice, water, soda, and popsicles are readily available. For infants on formula, please bring formula the day of surgery. Pacifiers are allowed. Take the following medications with a SIP of water the morning of surgery: _AMLODIPINE, LEVETIRACETAM, METOPROLOL & GABAPENTIN IF TAKEN IN THE AM, ALBUTEROL, PAIN PILL & NITROGLYCERIN IF NEEDED_ DO NOT STOP ANY OF YOUR OTHER PRESCRIPTION MEDICATIONS PRIOR TO SURGERY ?EXCEPT THE FOLLOWING Medications to discontinue per physician N/A Date to take last dose Please no make-up, nail latvian, hairspray, perfume, deodorant, or body powder the day of surgery. No jewelry (including any body piercings) or valuables the day of surgery, leave them at home. Please take a shower or bath the night before, or the morning of, surgery with an antibacterial soap. Wear comfortable, loose fitting clothing. Children are encouraged to wear pajamas. - Jewelry must be removed prior to entering the operating room. Rings and piercings that are not removed may be cut off. - The hospital will not accept responsibility for valuables. - Please leave all valuables, including medications, at home the day of surgery. If you are going home after surgery, a licensed local company truck driver must drive you home. - NO public transportation without another adult if you receive anesthesia. - We recommend that an adult stay with you for 24 hours following discharge. - We also recommend that you do not drive, make important decision, drink alcoholic beverages, or take any drugs that were not prescribed by your health care provider for at least 24 hours after your discharge time. For Pediatric surgeries, we recommend two adults accompany the child home. Follow any additional instructions given to you from your surgeon. If you or anyone in your household have experienced Covid symptoms in the past week, please notify your surgeon or the nurse liaison at the phone number below for possible testing. Telephone instructions given to _PATIENT'S SPOUSE (CIRA)_and asked if any additional questions and then verbalized understanding. Patient advised to call surgeon office or pre surgery nurse liaison [phone] if any additional questions.
--- NOTE | 2022-08-12 07:10 | WPDHPUPDATE1 ---
History and Physical Update Update Date/Time: 08/12/22 07:10 History and Physical has been reviewed, including an updated exam of the patient. There are NO changes in the patient's condition. Risks, benefits, and alternatives have been discussed and questions answered. Patient agrees to proceed with procedure.
[2022-08-12 07:56] VITALS: BP 154/64; PULSE 50; RESP 16; TEMP 36.3; O2SAT 99
[2022-08-12] MEDS: LACTATED RINGERS 1,000 ML 30 ML IV CONT (07:58)
--- NOTE | 2022-08-12 08:04 | WPDANESEPPF ---
Anes - Initial Pre Proc Eval Procedure: Operation Date: 08/12/22 09:30 Proposed Procedures p Excision of Basal Cell Carcinoma Left Nasal Tip with Frozen Section, Possible Full Thickness Skin Graft or Composite Ear Cartilage Graft, Excision Neoplasm of Unspecified Behavior Inferior Eulalia Left Ear with Frozen Section, Possible Full Thickness Skin Graft - Pete Dewitt MD Date/Time: 08/12/22 08:04 Surgeon: Pete Dewitt MD Pre Op Diagnosis: BCC Left Nasal Tip Patient Data Age: 77 Gender: M Height: 1.85 m Weight: 83.3 kg Last Vital Signs Temp 36.3 C L 08/12/22 07:56 Pulse 50 L 08/12/22 07:56 Resp 16 08/12/22 07:56 BP 154/64 H 08/12/22 07:56 Pulse Ox 99 08/12/22 07:56 O2 Del Method Room Air 08/12/22 07:56 Allergies Allergy/AdvReac Type Severity Reaction Status Date / Time Iodinated Contrast Media Allergy Unknown hives Verified 08/12/22 07:30 Home Medications Medication Instructions Recorded Confirmed Type aspirin 81 mg tablet,delayed 81 mg PO DAILY 05/24/20 08/06/22 History release (Adult Aspirin Regimen) finasteride 5 mg tablet 5 mg PO DAILY 01/31/21 08/06/22 History albuterol sulfate 90 mcg/actuation 2 inh inhalation Q4H PRN Dyspnea 01/13/22 08/06/22 Rx aerosol inhaler #8.5 grams amlodipine 10 mg tablet See Rx Instructions .Route 04/17/22 08/06/22 Rx .COMPLEX #90 tabs levetiracetam 500 mg tablet 500 mg PO BID #90 tabs 06/15/22 08/06/22 Rx tamsulosin 0.4 mg capsule See Rx Instructions .Route 06/15/22 08/06/22 Rx .COMPLEX #10 caps atorvastatin 40 mg tablet 40 mg PO DAILY #90 tabs 07/06/22 08/06/22 Rx clopidogrel 75 mg tablet 75 mg PO DAILY #90 tabs 07/06/22 08/06/22 Rx metoprolol succinate 100 mg 100 mg PO QAM #90 tabs 07/06/22 08/06/22 Rx tablet,extended release 24 hr hydrocodone 10 mg-acetaminophen 1 tablet PO Q6H PRN pain #100 tabs 07/18/22 08/06/22 Rx 325 mg tablet nitroglycerin 0.4 mg sublingual 0.4 mg sublingual Q5M PRN Chest 07/21/22 08/06/22 Rx tablet Pain #30 tabs losartan 100 mg tablet 100 mg PO QAM #90 tabs 08/04/22 08/06/22 Rx gabapentin 100 mg capsule 100 mg PO DAILY #30 caps 08/06/22 08/06/22 Rx (Neurontin) isosorbide mononitrate 120 mg See Rx Instructions .Route 08/06/22 08/06/22 Rx tablet,extended release 24 hr .COMPLEX #90 tabs Patient hx anesthesia problems: none Family hx anesthesia problems: none Results Review: All pre-operative results and documents have been reviewed as part of the pre-operative evaluation. [facility] Past Medical History Medical History Atherosclerosis of aorta BPH loc w urin obs/LUTS CAD in [place] artery Cervical radiculopathy due to degenerative joint disease of spine Coronary artery disease Essential hypertension Hyperlipidemia Lipoma Seizure disorder Tobacco abuse 2ppd Surgical History Surgical History H/O excision of mass 12/27/20 Excision 3 cm right posterior neck mass with layered closure 2. Excision of 1 cm right posterior elbow skin lesion H/O inguinal hernia repair right S/P coronary artery stent placement Family History Family History Sibling Family history of malignant neoplasm Family history of diabetes mellitus in first degree relative Acute myocardial infarction Father Heart disease Diabetes mellitus Mother COPD (chronic obstructive pulmonary disease) Other Hypertension Social History Social History Smoking packs per day: 2 Smoking cigarettes per day: 40.0 Years smoked: 59 Smoking pack-years: 118.00 Smoking status: Current every day smoker Tobacco type: cigarettes Second hand tobacco smoke exposure: Yes Alcohol intake: former Alcohol use details: FORMER SOCIAL DRINKER Substance use: never Substance use type: does
--- NOTE | 2022-08-12 08:16 | SUR.PREOP ---
Patient discharged, surgery cancelled to a later date due to Dr's emergency.
== END 2022-08-12 08:19 | disposition home or self-care (01) ==
PROVIDERS: PCP Internal Medicine; Visit Provider Plastic Surgery
DX: C44.311 Basal cell carcinoma of skin of nose (principal); Z53.8 Procedure and treatment not carried out for other reasons
CPT/HCPCS: 99212; A9270; G0463; J7120

== ENCOUNTER 2022-08-26 01:54 | Day surgery (SDC) | payer OTHER, MEDICAID, SELFPAY ==
[2022-08-19 13:18] VITALS: BMI 23.8
--- NOTE | 2022-08-19 13:24 | PC.NURSE ---
Report to the Outpatient Waiting Room, entrance under the green pavilion located off [facility], at time ___06____ on date ___08/26/22____. Planned Procedure Time: __729 . Time changes happen often and if your time is changed the preop area will call you the afternoon before. - You and your visitor will be asked to self-screen and do not enter if you have any COVID symptoms. - Only one visitor is requested with a max of two and NO children visitors are allowed at this time. - The patient visitor may be requested to leave or wait in car when not with patient due to distancing restrictions. - A mask is optional within the hospital at this time. Patients may have clear liquids (water, carbonated beverages, clear teas, apple juice) until 3 hours prior to surgery (0430 AM) with a maximum of 20 ounces. - No food from midnight until time of surgery - Infants may have breast milk until 4 hours before surgery, formula 6 hours prior to surgery. - Children will be allowed to drink immediately following surgery. If applicable, please bring a bottle or sippy cup to assist with drinking. Juice, water, soda, and popsicles are readily available. For infants on formula, please bring formula the day of surgery. Pacifiers are allowed. Take the following medications with a SIP of water the morning of surgery: _AMLODIPINE, LEVETIRACETAM, METOPROLOL, GABAPENTIN IF TAKEN IN THE AM, ALBUTEROL, PAIN PILL & NITROGLYCERIN IF NEEDED_ DO NOT STOP ANY OF YOUR OTHER PRESCRIPTION MEDICATIONS PRIOR TO SURGERY ?EXCEPT THE FOLLOWING Medications to discontinue per physician N/A Date to take last dose Please no make-up, nail irish, hairspray, perfume, deodorant, or body powder the day of surgery. No jewelry (including any body piercings) or valuables the day of surgery, leave them at home. Please take a shower or bath the night before, or the morning of, surgery with an antibacterial soap. Wear comfortable, loose fitting clothing. Children are encouraged to wear pajamas. - Jewelry must be removed prior to entering the operating room. Rings and piercings that are not removed may be cut off. - The hospital will not accept responsibility for valuables. - Please leave all valuables, including medications, at home the day of surgery. If you are going home after surgery, a licensed racecar driver must drive you home. - NO public transportation without another adult if you receive anesthesia. - We recommend that an adult stay with you for 24 hours following discharge. - We also recommend that you do not drive, make important decision, drink alcoholic beverages, or take any drugs that were not prescribed by your health care provider for at least 24 hours after your discharge time. For Pediatric surgeries, we recommend two adults accompany the child home. Follow any additional instructions given to you from your surgeon. If you or anyone in your household have experienced Covid symptoms in the past week, please notify your surgeon or the nurse liaison at the phone number below for possible testing. Telephone instructions given to _PT'S SPOUSE [employer]A_and asked if any additional questions and then verbalized understanding. Patient advised to call surgeon office or pre surgery nurse liaison [phone] if any additional questions.
--- NOTE | 2022-08-25 14:57 | WPDANESEPPF ---
Anes - Initial Pre Proc Eval Procedure: Operation Date: 08/26/22 08:15 Proposed Procedures p Excision Basal Cell Carcinoma Left Nasal Tip with Frozen Section, Possible Full Thickness Skin Graft or Composite Ear Cartilage Graft, Excision Neoplasm of Unspecified Behavior Inferior Eulalia Left Ear with Frozen Section and Possible Full Thickness Skin Graft - Pete Dewitt MD Date/Time: 08/25/22 14:57 Surgeon: Pete Dewitt MD Pre Op Diagnosis: bcca left nasal tip,neopl inferior eulalia left ear Patient Data Age: 77 Gender: M Height: 1.85 m Weight: 81.81 kg Allergies Allergy/AdvReac Type Severity Reaction Status Date / Time Iodinated Contrast Media Allergy Unknown hives Verified 08/19/22 13:17 Home Medications Medication Instructions Recorded Confirmed Type aspirin 81 mg tablet,delayed 81 mg PO DAILY 05/24/20 08/19/22 History release (Adult Aspirin Regimen) finasteride 5 mg tablet 5 mg PO DAILY 01/31/21 08/19/22 History albuterol sulfate 90 mcg/actuation 2 inh inhalation Q4H PRN Dyspnea 01/13/22 08/19/22 Rx aerosol inhaler #8.5 grams amlodipine 10 mg tablet See Rx Instructions .Route 04/17/22 08/19/22 Rx .COMPLEX #90 tabs levetiracetam 500 mg tablet 500 mg PO BID #90 tabs 06/15/22 08/19/22 Rx tamsulosin 0.4 mg capsule See Rx Instructions .Route 06/15/22 08/19/22 Rx .COMPLEX #10 caps atorvastatin 40 mg tablet 40 mg PO DAILY #90 tabs 07/06/22 08/19/22 Rx clopidogrel 75 mg tablet 75 mg PO DAILY #90 tabs 07/06/22 08/19/22 Rx metoprolol succinate 100 mg 100 mg PO QAM #90 tabs 07/06/22 08/19/22 Rx tablet,extended release 24 hr hydrocodone 10 mg-acetaminophen 1 tablet PO Q6H PRN pain #100 tabs 07/18/22 08/19/22 Rx 325 mg tablet nitroglycerin 0.4 mg sublingual 0.4 mg sublingual Q5M PRN Chest 07/21/22 08/19/22 Rx tablet Pain #30 tabs losartan 100 mg tablet 100 mg PO QAM #90 tabs 08/04/22 08/19/22 Rx gabapentin 100 mg capsule 100 mg PO DAILY #30 caps 08/06/22 08/19/22 Rx (Neurontin) isosorbide mononitrate 120 mg See Rx Instructions .Route 08/06/22 08/19/22 Rx tablet,extended release 24 hr .COMPLEX #90 tabs Patient hx anesthesia problems: none Family hx anesthesia problems: none Results Review: All pre-operative results and documents have been reviewed as part of the pre-operative evaluation. [facility] Past Medical History Medical History (Updated 08/26/22 @ 07:20 by Adilson Zhang, ) Abdominal aortic aneurysm 4.1cm Sept 2020 Atherosclerosis of aorta BPH loc w urin obs/LUTS CAD in [place] artery Cervical radiculopathy due to degenerative joint disease of spine Coronary artery disease Essential hypertension Hyperlipidemia Lipoma Seizure disorder TIA (transient ischemic attack) 2017 Tobacco abuse 2ppd Surgical History Surgical History H/O excision of mass 12/27/20 Excision 3 cm right posterior neck mass with layered closure 2. Excision of 1 cm right posterior elbow skin lesion H/O inguinal hernia repair right S/P coronary artery stent placement Family History Family History Sibling Family history of malignant neoplasm Family history of diabetes mellitus in first degree relative Acute myocardial infarction Father Heart disease Diabetes mellitus Mother COPD (chronic obstructive pulmonary disease) Other Hypertension Social History Social History Smoking packs per day: 2 Smoking cigarettes per day: 40.0 Years smoked: 59 Smoking pack-years: 118.00 Smoking status: Current every day smoker Tobacco type: cigarettes Second hand tobacco smoke exposure: Yes Alcohol intake: former Alcohol use details: FORMER SOCIAL DRINKER Substance use: never Substance use type: does not use Lack of Transportation: No Lack of Food: Never True Current Housing: I Have
[2022-08-26 06:59] VITALS: BP 146/58; PULSE 49; RESP 16; TEMP 36.6; O2SAT 97
[2022-08-26] MEDS: LACTATED RINGERS 1,000 ML 30 ML IV CONT ×2 (07:13→10:59)
--- NOTE | 2022-08-26 08:51 | WPDHPUPDATE1 ---
History and Physical Update Update Date/Time: 08/26/22 08:51 History and Physical has been reviewed, including an updated exam of the patient. There are NO changes in the patient's condition. Risks, benefits, and alternatives have been discussed and questions answered. Patient agrees to proceed with procedure.
[2022-08-26] MEDS: LIDO 1%/EPINEPHRINE 1:100,000 50 ML VIAL 8 ML INFILTRATE (08:54)
[2022-08-26] MEDS: ceFAZolin SODIUM 1 GM VIAL IV PUSH (09:17)
[2022-08-26] MEDS: BACITRACIN OINTMENT 15 GM TUBE 1 APPLIC TOPICAL (09:43)
[2022-08-26 10:59] VITALS: BP 126/52; PULSE 57; RESP 14; O2SAT 92
[2022-08-26 11:29] VITALS: BP 126/52; PULSE 57; RESP 16; O2SAT 92
[2022-08-26 11:57] VITALS: BP 121/60; PULSE 45; RESP 16; O2SAT 92
--- NOTE | 2022-08-26 18:50 | W.PM.PROC2 ---
Procedure Note - Detailed Date of Procedure 08/26/22 Pre-op Diagnosis bcca left nasal tip,neopl inferior quang left ear Post-op Diagnosis Other (Basal cell carcinoma of the left nasal tip. Basal cell carcinoma of the left inferior quang.) Procedure Performed 1. 2 cm excision of basal cell carcinoma of the left nasal tip with frozen section and full-thickness skin graft 3 sq cm. 2. 1.5 cm excision of basal cell carcinoma of the left inferior quang with frozen section and 2. 75 sq cm full-thickness graft Surgeon Pete Dewitt MD Anesthesia General Description of Procedure While the patient was waiting in the holding area the left nasal tip and the left inferior quang were marked with his consent. He was taken to the operating room where he was placed supine on the operating table. Pressure points were padded the knees flexed over a pillow and the head elevated. The entire face and both sides of the neck and upper shoulders were prepped and draped in usual fashion the sites were carefully examined and markings made for excision around the evident tumor. Both sites were infiltrated with 1% lidocaine with epinephrine. The smaller more defined neoplasm from the left quang was taken 1st with a 15 blade through the full-thickness of skin and the full-thickness of cartilage. The specimen was sent with a request for diagnosis and deep margin. There was no orienting suture. The additional time for epinephrine effect was helpful when we inscribed the presumed tumor on this nose that has a lot of very large pores. The mass was taken at the fascial level. The most superior aspect was marked with a suture for 12:00 o'clock. While the specimens were out we went ahead to design a full-thickness skin graft from the left side of the neck where there is redundant skin. A generous oval incision was made from which both sites could be grafted with some to spare in case we needed further excision. The report from pathologist on the ear specimen was that this was basal cell carcinoma and that the margins were positive on the deep side through the skin but we had proceeded to remove all of the underlying cartilage. The posterior lamella of skin in this region appeared normal. The graft was placed on a saline moistened gauze as we closed the donor wound, undermining the edges, with an intradermal running 4-0 Vicryl suture. he portion of the graft was cut defatted and inset with 5 0 nylon at the periphery and quilting type sutures at several sites across the base of the graft. This gentleman had remained on his clopidogrel and aspirin and oozed throughout much of the case. The remainder of the graft was tailored and inset with 5 0 nylon to the defect on the nose once we had been informed that this also was a basal cell carcinoma and that the margins were free. Quilting type stitches were also placed on the nasal graft. The donor site wound was further closed with glue. No dressing was applied to the ear except bacitracin ointment. Bacitracin was applied to the nose. A folded 2 x 2 gauze was Steri taped to the nose to help prevent bleeding. The patient's face was cleaned up he was extubated and discharged from the operating room in stable condition Estimated Blood Loss 30 Drains No Packing No Pathology Yes Complications No immediate complications Condition Stable Disposition PACU
== END 2022-08-26 12:05 | disposition home or self-care (01) ==
PROVIDERS: PCP Internal Medicine; Visit Provider Plastic Surgery
PROC: (CPT 11642; principal; 2022-08-26 08:15)
DX: C44.311 Basal cell carcinoma of skin of nose (principal); C44.219 Basal cell carcinoma of skin of left ear and external auricular canal; I71.40 Abdominal aortic aneurysm, without rupture, unspecified; I25.10 Atherosclerotic heart disease of native coronary artery without angina pectoris; I10 Essential (primary) hypertension; E78.5 Hyperlipidemia, unspecified; G40.909 Epilepsy, unspecified, not intractable, without status epilepticus; N40.1 Benign prostatic hyperplasia with lower urinary tract symptoms; N13.9 Obstructive and reflux uropathy, unspecified; Z95.5 Presence of coronary angioplasty implant and graft; Z79.82 Long term (current) use of aspirin; Z79.51 Long term (current) use of inhaled steroids; Z79.02 Long term (current) use of antithrombotics/antiplatelets; Z79.891 Long term (current) use of opiate analgesic; F17.210 Nicotine dependence, cigarettes, uncomplicated
CPT/HCPCS: 11642 ×2; 15260; 88305; 88331; A9270; J0690; J2704; J3010; J7120

== ENCOUNTER 2022-10-26 07:28 | Outpatient (CLI) | payer OTHER, MEDICAID, SELFPAY ==
--- NOTE | 2022-10-26 08:10 | ECHO_ITS ---
Patient Info Name: Levi Ramos Age: 77 years : 1945 Gender: Male Ht: 73 in Wt: 180 lbs BSA: 2.05 m2 HR: 52 bpm BP: 152 / 76 mmHg Technical Quality: Good Exam Date: 10/26/2022 8:21 AM Exam Location: [facility] Patient Status: Outpatient Admit Date: 10/26/2022 Staff Ordering Physician: Farooq Vasquez DO [employer] Teacher: Megan Cabrera RDCS Attending Provider: Farooq Vasquez DO Referring Physician: Pedro DIAZ; Exam Type: CA echo doppler color flow Study Info Indications I35.0 - Nonrheumatic aortic (valve) stenosis Complete two-dimensional, color flow and Doppler transthoracic echocardiogram is performed. Summary 1. Complete two-dimensional, color flow and Doppler transthoracic echocardiogram is performed. 2. Left ventricular chamber dimension is normal. 3. Left ventricular systolic function is normal, estimated at 60-65%. 4. There is mild concentric increased left ventricular wall thickness. 5. The left ventricular diastolic function is abnormal. 6. E/e' 13 is mildly elevated. 7. Global longitudinal strain is normal at -19.1%. 8. Left atrial chamber dimension is moderately enlarged. 9. There is severe aortic valve sclerosis. 10. There is mild aortic valve stenosis with a peak velocity of 272 cm/s, mean gradient of 18 mmHg, and aortic valve area of 1.6 cm2. 11. There is mild to moderate aortic valve regurgitation. 12. There is mild mitral valve regurgitation. 13. No pulmonary hypertension, estimated pulmonary arterial systolic pressure is 31 mmHg. Left Ventricle E/e' 13 is mildly elevated. Global longitudinal strain is normal at -19.1%. Left ventricular chamber dimension is normal. Left ventricular systolic function is normal, estimated at 60-65%. There is mild concentric increased left ventricular wall thickness. The left ventricular diastolic function is abnormal. Right Ventricle Right ventricular systolic function is normal and with normal TAPSE 3.1 cm. Right ventricular chamber dimension is normal. Left Atria Left atrial chamber dimension is moderately enlarged. Right Atria Right atrial chamber dimension is normal. Aortic Valve The aortic valve is trileaflet. There is severe aortic valve sclerosis. There is mild aortic valve stenosis with a peak velocity of 272 cm/s, mean gradient of 18 mmHg, and aortic valve area of 1.6 cm2. There is mild to moderate aortic valve regurgitation. Pulmonic Valve There is no pulmonic regurgitation. Mitral Valve There is no mitral valve stenosis. There is mild mitral valve regurgitation. Tricuspid Valve There is no tricuspid valve regurgitation. No pulmonary hypertension, estimated pulmonary arterial systolic pressure is 31 mmHg. Pericardium/Pleural There is no pericardial effusion. Inferior Vena Cava Normal inferior vena cava with >50% collapse upon inspiration consistent with normal right atrial pressure, 5 mmHg. Aorta The aortic root size at the sinus of Valsalva is normal. Left Ventricular Outflow Tract Name Value Normal LVOT 2D LVOT Diameter 2.2 cm LVOT Doppler LVOT Peak Gradient 6 mmHg LVOT Mean Gradient 3 mmHg LVOT VTI 30 cm LVO
== END 2022-10-26 07:29 | disposition home or self-care (01) ==
LOC: ANHCARD 07:30
PROVIDERS: PCP Internal Medicine; Visit Provider Internal Medicine Cardiovascular Disease
DX: I08.0 Rheumatic disorders of both mitral and aortic valves (principal)
CPT/HCPCS: 93306

== ENCOUNTER 2024-05-02 08:28 | Outpatient (CLI) | payer OTHER, MEDICAID, SELFPAY ==
--- NOTE | 2024-05-02 08:46 | ECHO_ITS ---
Patient Info Name: Levi Ramos Age: 78 years : 1945 Gender: Male Ht: 73 in Wt: 174 lbs BSA: 2.02 m2 HR: 47 bpm BP: 162 / 66 mmHg Technical Quality: Good Exam Date: 05/02/2024 8:55 AM Exam Location: Echo Lab Patient Status: Outpatient Admit Date: 05/02/2024 Staff Ordering Physician: Farooq Vasquez DO Casing In Line Setter: Lindsey Cox RDCS Attending Provider: Farooq Vasquez DO Referring Physician: Pedro DIAZ; Exam Type: CA echo doppler color flow Study Info Indications - NONRHEUMATIC AORTIC STENOSIS Complete two-dimensional, color flow and Doppler transthoracic echocardiogram is performed. Summary 1. Complete two-dimensional, color flow and Doppler transthoracic echocardiogram is performed. 2. Left ventricular chamber dimension is normal. 3. Left ventricular systolic function is normal, estimated at 60-65%. 4. There is moderate concentric increased left ventricular wall thickness. 5. The left ventricular diastolic function is grade I diastolic dysfunction. 6. E/e' 10 is mildly elevated. 7. Left atrial chamber dimension is moderately enlarged. 8. Right atrial chamber dimension is mildly enlarged. 9. The aortic valve is probably bicuspid. 10. There is moderate aortic valve sclerosis. 11. There is moderate aortic valve stenosis with a peak velocity of 295 cm/s, mean gradient of 19 mmHg, and aortic valve area of 1.2 cm2. 12. There is mild aortic valve regurgitation. 13. There is mild mitral valve regurgitation. 14. There is trace tricuspid valve regurgitation. 15. No pulmonary hypertension, estimated pulmonary arterial systolic pressure is 39 mmHg. 16. Dilated inferior vena cava with >50% collapse upon inspiration consistent with elevated right atrial pressure, 10 mmHg. Left Ventricle E/e' 10 is mildly elevated. Left ventricular chamber dimension is normal. Left ventricular systolic function is normal, estimated at 60-65%. There is moderate concentric increased left ventricular wall thickness. The left ventricular diastolic function is grade I diastolic dysfunction. Right Ventricle Right ventricular systolic function is normal and with normal TAPSE 3.0 cm. Right ventricular chamber dimension is normal. Left Atria Left atrial chamber dimension is moderately enlarged. Right Atria Right atrial chamber dimension is mildly enlarged. Aortic Valve The aortic valve is probably bicuspid. There is moderate aortic valve sclerosis. There is moderate aortic valve stenosis with a peak velocity of 295 cm/s, mean gradient of 19 mmHg, and aortic valve area of 1.2 cm2. There is mild aortic valve regurgitation. Pulmonic Valve There is no pulmonic regurgitation. Mitral Valve There is no mitral valve stenosis. There is mild mitral valve regurgitation. Tricuspid Valve There is trace tricuspid valve regurgitation. No pulmonary hypertension, estimated pulmonary arterial systolic pressure is 39 mmHg. Pericardium/Pleural There is no pericardial effusion. Inferior Vena Cava Dilated inferior vena cava with >50% collapse upon inspiration consistent with elevated right atrial pressure, 10 mmHg. Aorta The aortic root size at the sinus of Valsalva is normal. Left Ventricular Outflow Tract Name Value Normal LVOT 2D LVOT Diameter 2.2 cm LVOT Doppler LVOT Peak Gradient 5 mmHg LVOT Mean Gradient 2 mmHg LVOT VTI 26 cm LVOT VTI/AV VTI Ratio 0.3 LVOT Stroke Volume 97 ml LVOT CO 4.4 l/min LVOT CI 2.2 l/min/m2 Pulmonic Valve Name Value Normal RVOT Doppler RVOT Peak Gradient 2 mmHg PV Doppler PV Peak Gradient 3 mmHg Mitral Valve Name Value Normal MV Doppler MV Decel Ramsey 302 cm/s2 MV PHT 59 ms MV Area (PHT) 3.7 cm2 4.0-5.0 MV Diastolic Function MV E Peak Velocity 62 cm/s MV A Peak Velocity 67 cm/s MV E/A 0.9 MV Decel Time 204 ms MV Annular TDI MV E/e' (Septal) 11.9 <=8.0 MV E/e' (Lateral) 9.2 <=8.0 MV E/e' (Average) 10.5 Tricuspid Valve Name Value Normal TV Regurgitation Doppler TR Peak Velocity 268 cm/s TR Peak Gradient 29 mmHg Estimated PAP/RSVP RA Pressure 10 mmHg <=5 PA Systolic Pressure 39 mmHg <36 RV Systolic Pressure 39 mmHg <36 Aorta Name Value Normal Ascending Aorta Ao Root Diameter (MM) 4.5 cm Ao Root Diam Index (MM) 2.2 cm/m2 Aortic Valve Name Value Normal AV Doppler AV Peak Velocity 295 cm/s AV Peak Gradient 30 mmHg AV Mean Gradient 19 mmHg AV VTI 83 cm AV Area (Cont Eq VTI) 1.2 cm2 >=3.0 AV Area (Cont Eq Jus) 1.4 cm2 AV Regurgitation 2D LVOT Area 3.7 cm2 AV Regurgitation Doppler AR Decel Time 2,056 ms AR Decel Ramsey 156 cm/s2 AR PHT 596 ms Ventricles Name Value Normal LV Dimensions 2D/MM IVS Diastolic Thickness (2D) 1.8 cm 0.6-1.0 LVID Diastole (2D) 5.3 cm 4.2-5.8 LVIW Diastolic Thickness (2D) 1.2 cm 0.6-1.0 LVID Systole (2D) 3.7 cm 2.5-4.0 LVOT Diameter 2.2 cm LV Mass (2D Cubed) 352.69 g 88.00-224.00 LV Mass Index (2D Cubed) 175 g/m2 49-115 Relative Wall Thickness (2D) 0.45 LV Fractional Shortening/Ejection Fraction 2D/MM LV Fractional Shortening (2D) 31 % 25-43 LV EF (2D Teicholz) 58 % 52-72 LV Diastolic Volume (4C MOD) 152 ml LV EF (4C MOD) 60 % LV Diastolic Volume (2C MOD) 101 ml LV EF (2C MOD) 58 % LV Diastolic Volume (BP MOD) 128 ml 62-150 LV Diastolic Volume Index (BP MOD) 64 ml/m2 34-74 LV Systolic Volume (BP MOD) 51 ml 21-61 LV Systolic Volume Index (BP MOD) 25 ml/m2 11-31 LV EF (BP MOD) 60 % 52-72 LV Diastolic Length (4C) 8.4 cm LV Systolic Length (4C) 6.3 cm LV Stroke Volume (4C MOD) 91 ml Atria Name Value Normal LA Dimensions LA Dimension (MM) 5.5 cm 3.0-4.1 LA Volume (4C A-L) 55 ml LA Volume (BP A-L) 74 ml RA Dimensions RA Area (4C) 20.5 cm2 <=18.0 Report Signatures
== END 2024-05-02 08:29 | disposition home or self-care (01) ==
PROVIDERS: PCP Family Medicine; Visit Provider Internal Medicine Cardiovascular Disease
DX: I35.0 Nonrheumatic aortic (valve) stenosis (principal); I35.8 Other nonrheumatic aortic valve disorders; I08.0 Rheumatic disorders of both mitral and aortic valves
CPT/HCPCS: 93306

== ENCOUNTER 2024-10-05 13:38 | Outpatient (CLI) | payer OTHER, MEDICAID, SELFPAY ==
--- OUTSIDE RECORDS SUMMARY | 2024-10-05 13:42 | XMS_ITS | Clinical Summary ---
Author Organization [facility] [place] [address] Address [address] [place] [address] Care Team Providers Care Design Maker Name Role Phone Gurpreet Arriola MD Unavailable [phone] Daniel Curry MD Primary Care Provider [phone] Farooq Vasquez DO Unavailable [phone] Jackson Bhatia MD Unavailable + [phone] Allergies Active Allergy Reactions Criticality Noted Date Comments Iodinated Contrast Media Hives Medium 07/30/2023 Medications nitroglycerin (NITROSTAT) 0.[address] 1 tablet by sublingual route at the 1st sign of attack; may repeat every 5 min until relief; if pain persists after 3 tablets in 15 min, prompt medical attention is recommended 0 0 08/15/19 16 Active levETIRAcetam (KEPPRA) 500 mg tablet take 1 tablet by oral route 2 times every day 0 0 08/15/19 16 Active aspirin (ASPIR-81) 81 mg tablet take 1 tablet by oral route every day 0 0 09/27/19 16 Active atorvastatin (LIPITOR) 40 mg tablet take 1 tablet by oral route every day 30 7 09/27/19 16 Active amLODIPine (NORVASC) 10 mg tablet Take 1 tablet (10 mg total) by mouth daily 01/20/20 22 Active ipratropium-albut Niki (DUO-NEB) 0.5-2.5 mg/3 mL nebulizer solutionIndicatio ns:Chronic Obstructive Pulmonary Disease with Bronchospasms Take 3 mL by nebulization 4 (four) times a day as needed for wheezing or shortness of breath 360 mL 5 05/25/19 24 Active isosorbide mononitrate ER (IMDUR) 120 mg 24 hr tablet Take 1 tablet (120 mg total) by mouth nightly 06/17/19 24 Active metoprolol XL (TOPROL-XL) 100 mg 24 hr tablet Take 1 tablet (100 mg total) by mouth every morning 07/14/19 24 Active ranolazine ER (RANEXA) 500 mg 12 hr tablet Take 1 tablet (500 mg total) by mouth every 12 (twelve) hours 05/28/19 24 Active albuterol HFA (ProAir HFA) 90 mcg/actuation inhaler Inhale 1 puff every 4 (four) hours as needed for wheezing 1 each 04/06/20 24 Active budesonide-formot Niki (SYMBICORT) 160-4.5 mcg/actuation inhaler Inhale 2 puffs 2 (two) times a day Rinse mouth with water after use. Do not swallow. 1 each 04/06/20 24 Active losartan-hydroCHL OROthiazide (HYZAAR) 100-12.5 mg per tablet Take 1 tablet by mouth daily 03/08/20 24 Active predniSONE (DELTASONE) 50 mg tablet Take 1 tab 13 hours, 7 hours and 1 hour prior to scan along with 50 MG Benadryl. 3 tablet 05/18/19 25 Active predniSONE (DELTASONE) 50 mg tablet Take 1 tab 13 hours, 7 hours and 1 hour prior to scan along with 50 MG Benadryl. 3 tablet 06/19/19 25 Active diphenhydrAMINE (BENADRYL) 50 mg capsule Take 1 capsule (50 mg total) by mouth once for 1 dose 1 capsule 06/19/19 25 Active Additional Information Patient not taking.Reported on 08/17/2024 Active Problems Problem Noted Date Diagnosed Date AAA (abdominal aortic aneurysm) without rupture 06/26/2024 Assessment & Plan (09/01/2024 3:23 PM CDT): Status post TEVAR. Stent graft good position patent no endoleak. Follow up 1 year. BPH associated with nocturia 08/04/2023 Bladder stones 06/29/2023 BPH with obstruction/lower urinary tract symptom s 06/29/2023 Lesion of bladder 06/29/2023 Pulmonary nodule 03/25/2022 Assessment & Plan (03/25/2022 10:39 AM CRACKING UNIT OPERATOR): Impression: Incidental finding of a left lower lobe pulmonary nodule measuring 2.5 x 1.9 cm. Patient has significant smoking history. Plan: Discussed with the patient that he will need to follow-up with his PCP for further evaluation and treatment. Adrenal nodule 03/25/2022 Assessment & Plan (03/25/2022 10:40 AM CRACKING UNIT OPERATOR): Impression: Incidental finding of a 4 x 3 cm left adrenal nodule on CTA abdomen and pelvis. Plan: Discussed with the patient that he will need to follow up with his primary care provider for further evaluation and treatment. Abdominal aortic aneurysm (AAA) without rupture 02/25/2022 Assessment & Plan (07/14/2024 11:24 AM CRACKING UNIT OPERATOR): Status post EVAR 06/26/2024. Patient is recovering well does not have any more lower abdominal pain voiding and having normal bowel movement without any issues. Denies any lower extremity claudication symptoms. We will have the patient follow-up in 1 month with aortic duplex. Assessment & Plan (06/20/2024 1:10 PM CRACKING UNIT OPERATOR): Increased size of his AAA from prior study. It was now measures 5.2 cm. I have recommended proceeding with endograft repair was he will be a good candidate. The procedure indications and all associated risks have been explained. He understands and agrees to proceed. Assessment & Plan (05/13/2023 9:38 AM CRACKING UNIT OPERATOR): Bilobed AAA with the superior portion measuring 3 x 3.1 cm. Inferior portion currently measuring 4.8 x 4.6 cm previously measuring 4.5 x 4.4 cm 6 months ago. He remains asymptomatic. Incidental findings on the CT scan which showed a bladder mass a left adrenal mass and a left lower lobe long mass were discussed with the patient. He has been referred to pulmonology and Urology. Communication is also been sent to his PCP as well. Discussed the images and patient with Dr. Arriola. Plan: Follow-up in 1 year for routine surveillance with a CTA of the abdomen and pelvis Assessment & Plan (11/04/2022 3:22 PM CDT): Stable bilobed infrarenal abdominal aortic aneurysm measuring 4.5 cm in greatest diameter, asymptomatic. Patient to follow-up in the office in 6 months with repeat CTA of the abdomen pelvis. Assessment & Plan (03/25/2022 10:41 AM CRACKING UNIT OPERATOR): Impression: 4.5 cm bilobed infrarenal abdominal aortic aneurysm. Patient is asymptomatic. Plan: No surgical intervention currently needed. Patient follow-up in 6 months for re-evaluation with repeat CTA abdomen and pelvis surveillance. Assessment & Plan (02/25/2022 8:53 AM CDT): Known abdominal aortic aneurysm now measuring up to at least 4.5 cm on ultrasound. Will follow-up with CT angiogram for more complete evaluation. Follow-up in the office once that study is performed to discuss further recommendations. Palpitations 08/31/2017 History of TIA (transient ischemic attack) 08/31 Hyperlipidemia LDL goal <70 08/31/2017 Assessment & Plan (06/20/2024 1:10 PM CRACKING UNIT OPERATOR): Hyperlipidemia chronic controlled. Continue Lipitor. Chronic obstructive pulmonary disease 08/31/2017 Systolic murmur 08/31/2017 Presence of stent in coronary artery 03/11/2017 Tobacco abuse 03/11/2017 Assessment & Plan (02/25/2022 8:53 AM CDT): Greater than 3 minutes was spent on smoking cessation and Education. Patient smokes 2 packs per day and stated openly he has no interest in quitting has tried and failed previously no longer wishes to pursue attempts at smoking cessation. Essential hypertension 03/11/2017 Assessment & Plan (06/20/2024 1:11 PM CRACKING UNIT OPERATOR): Hypertension chronic controlled. Continue current medical management. Assessment & Plan (03/25/2022 10:42 AM CRACKING UNIT OPERATOR): Impression: Stable chronic hypertension. Plan: Medications reviewed and recommend continuing daily antihypertensive regimen as directed by patient's primary care physician. Assessment & Plan (02/25/2022 8:53 AM CDT): Hypertension chronic and controlled. Continue current medical therapy. Coronary artery disease of n ative artery of [place] heart with stable angina pectoris 03/11/2017 Dyslipidemia 03/11/2017 Assessment & Plan (02/25/2022 8:53 AM CDT): Dyslipidemia chronic and controlled. Continue Lipitor. Encounters Date Type Department Care Team Description 10/04/2024 2:14 PM CDT - 10/04/2024 11:59 PM CDT Hospital Encounter [facility] [place] [address] Pulmonary nodule Discharge Disposition: Discharge to home or self care 08/17/2024 3:00 PM CDT Office Visit [facility] Vascular and Vein Surgery [address] [place] [phone] Gurpreet Arriola MD Aneurysm of infrarenal abdominal aorta, unspecified whether ruptured (Primary Dx); Other specified symptoms and signs involving the circulatory and respiratory systems; Infrarenal abdominal aortic aneurysm (AAA) without rupture; Dyslipidemia 08/10/2024 9:44 AM CDT - 08/10/2024 11:59 PM CDT Hospital Encounter [facility] Cardiac Testing [address] [place] [address] Aftercare following surgery of the circulatory system Discharge Disposition: Discharge to home or self care 08/01/2024 1:45 PM CDT Lab [facility] [address] [place] [id number] Prostate cancer (HCC) 07/14/2024 Orders Only [facility] Vascular and Vein Surgery [address] [place] [phone] Gurpreet Arriola MD Aftercare following surgery of the circulatory system (Primary Dx) 07/13/2024 2:15 PM CRACKING UNIT OPERATOR Office Visit [facility] Vascular and Vein Surgery [address] [place] [phone] Mela Aggarwal NP Infrarenal abdominal aortic aneurysm (AAA) without rupture (Primary Dx) from Last 3 Months Immunizations Immunization Administration Dates Next Due Influenza, Quad, Adjuvantated, Intramuscular ,03/03/2021 Influenza, Quadrivalent, Hig h Dose, Preservative Free, Intrr 02/12/2020 Surgical History Surgery Date Site/Laterality Comments MASS EXCISION 01/14/2021 Right excision 3cm RT post neck mass w/ layered closure, excision of 1cm post elbow skin lesion. INCISIONAL HERNIA REPAIR right lower abd. CORONARY ANGIOPLASTY WITH STENT PLACEMENT Stent x 1. Approx 8-10 years ago. 2017 MELANOMA RESECTION face left TRANSURETHRAL RESECTION OF BLADDER TUMOR 07/16/2023 - 08/15/2023 Cystolitholapaxy (small < 3 cm) Transurethral Resection of Prostate Transurethral resection of bladder tumor (small < 3 cm) NOSE SURGERY BCC removed REPAIR ANEURYSM - ABDOMINAL AORTIC - ENDOLUMINAL - HYBRID ROOM 06/26/2024 Abdomen/N/A Procedure: PERCUTANEOUS ENDOVASCULAR ABDOMINAL AORTIC ANEURYSM REPAIR; Surgeon: Gurpreet Arriola MD; Location: [facility] OPERATING ROOM; Service: Vascular; Laterality: N/A; HYBRID ROOM [facility] Medical devices from this surgery are in the Medical Devices section. Medical History Medical History Date Comments COPD (chronic obstructive pu lmonary disease) (HCC) Seizure disorder (HCC) takes Kep pra. Last seizure approx 10 years. Has had 3-4 in lifetime. Osteoarthritis Hypertension History of melanoma history ren gnant melanoma of face; Smoker ciggs TIA (transient ischemic attack) 2019 x1; no residual. Chest pain takes Nitro PRN. Last use week of 07/25/23. See's Dr Vasquez denies any c/o chest pain 06/12/24 Difficulty urinating after melan jessica excision/anesthesia. Full dentures Upper Denture. CAD (coronary artery disease) st ent x 1; Plavix stopped by cardiology and remains on Aspirin. AAA (abdominal aortic aneurysm) 04/2023 Bilobed AAA with the superior portion measuring 3 x 3.1 cm. Inferior portion currently measuring 4.8 x 4.6 cm; Follows with Dr Arriola. Cancer (HCC) bladder see surg cindi COPD (chronic obstructive pu lmonary disease) (HCC) BPH (benign prostatic hyperplasia) Dyslipidemia Pulmonary nodule Family History Medical History Relation Name Comments Heart attack Brother Myocardial infa rction; Diabetes Father Heart attack Father Myocardial infa rction; Cause of : Myocardial infarction COPD Mother Heart attack Mother Myocardial infa rction; Relation Name Status Comments Brother Father Mother Social History Tobacco Use Types Packs/Day Years Used Date Smoking Tobacco: Heavy Smoker Cigarettes 2 50 Passive Smoke Exposure: Current Smokeless Tobacco: Former Chew Quit: 05/1999 Tobacco Cessation:Ready to Q uit: Not Asked; Counseling Given: Not Answered Comments:Smoking History Packs/day: 2 Packs Alcohol Use Standard Drinks/Week Comments No 0 (1 standard drink = 0.6 oz pur e alcohol) [facility] [employer] Answer Date Recorded In the past 12 months has [employer], gas, oil, or water [employer] threatened to shut off services in your home? No 06/27/2024 Social Connection and Isolat ion Panel [NHANES] Answer Date Recorded In a typical week, how many times do you talk on the phone with family, friends, or neighbors? More than three times a week 06/27/2024 How often do you get togethe r with friends or relatives? More than three times a week 06/27/2024 How often do you attend chur ch or scientologist services? Never 06/27/2024 Do you belong to any clubs o r organizations such as religious groups, unions, fraternal or athletic groups, or school groups? No 06/27/2024 How often do you attend meet ings of the clubs or organizations you belong to? Never 06/27/2024 Are you , , di vorced, , never , or living with a partner? 06/27/2024 AUDIT-C Answer Date Recorded Q1: How often do you have a drink containing alcohol? Never 06/26/2024 Q2: How many drinks containi ng alcohol do you have on a typical day when you are drinking? Patient does not drink Q3: How often do you have si x or more drinks on one occasion? Never 06/26/2024 Overall Financial Resource Strain (CARDIA) Answe r Date Recorded How hard is it for you to pa y for the very basics like food, housing, medical care, and heating? Not hard at all 06/27/2024 Hunger Vital Sign Answer Date Recorded Within the past 12 months, y ou worried that your food would run out before you got the money to buy more. Never true 06/27/19 25 Within the past 12 months, t he food you bought just didn't last and you didn't have money to get more. Never true 06/27/2024 PRAPARE - Transportation Answer Date Re corded In the past 12 months, has l ack of transportation kept you from medical appointments or from getting medications? No 06/17 In the past 12 months, has l ack of transportation kept you from meetings, work, or from getting things needed for daily living? No 06/27/2024 Housing Stability Vital Sign Answer Joshua e Recorded In the last 12 months, was t here a time when you were not able to pay the mortgage or rent on time? No 08/05/2023 In the last 12 months, how many places have you lived? 1 08/05/2023 In the last 12 months, was t here a time when you did not have a steady place to sleep or slept in a long term (including now)? No 08/05/2023 Housing Stability Vital Sign Answer Joshua e Recorded In the last 12 months, was t here a time when you were not able to pay the mortgage or rent on time? No 06/27/2024 In the past 12 months, how m any times have you moved where you were living? 0 06/27/2024 At any time in the past 12 m [facility], were you homeless or living in a long term (including now)? No 06/27/2024 Personal Safety Answer Date Recorded Have you ever been in or are you currently in a harmful physical or emotional relationship or is someone making you feel afraid or unsafe? Denies 06/26/2024 Sex and Gender Information Value Date Recorded Sex Assigned at Not on file Legal Sex Male 2:50 AM CRACKING UNIT OPERATOR Gender Identity Not on file Sexual Orientation Not on file Obstetrics History Last Filed Vital Signs Vital Sign Reading Time Taken Comments Blood Pressure 155/70 08/17/2024 2:48 PM CDT Pulse 56 08/17/2024 2:48 PM CDT Temperature 36.6 C (97.9 F) 06/27/2024 7:55 AM CRACKING UNIT OPERATOR Respiratory Rate 20 06/27/2024 7:55 AM CRACKING UNIT OPERATOR Oxygen Saturation 95% 06/27/2024 7:55 AM CRACKING UNIT OPERATOR Inhaled Oxygen Concentration - - Weight 78 kg (172 lb) 08/17/2024 2:48 PM CDT Height 186.7 cm (6' 1.5 ) 08/17/2024 2:48 PM CDT Body Mass Index 22.38 08/17/2024 2:48 PM CDT Plan of Treatment Health Maintenance Due Date Last Done Comments Depression Screening 1945 Hepatitis C Screening 1945 DTaP/Tdap/Td Vaccine (1 - Tdap) 1956 Hepatitis B Screening 1963 Pneumococcal vaccine 65+ (1 of 2 - PCV) 1964 Lung Cancer Screening 1995 Zoster Vaccine (1 of 2) 1995 Well Visit 65+ 2010 Covid-19 Vaccine (2023-2 5 season) 2024 03/21/2023, 05/02/2022, 05/13/2021, Additional history exists Influenza Vaccine (Season Ended) 2025 03/21/2023, 02/11/2022, 03/03/2021, Additional history exists Fall Risk Assessment 06/27/2025 06/27/2024 Abdominal Aortic Aneurysm (A AA) Screen Completed 08/17/2024, 08/17/2024, 07/13/2024, Additional history exists Medical Devices Implanted Type Area Air Pollution Analyst Device Identifier Shelf Expiration Date Model / Serial / Lot Stent Stent Heart [employer] Excluder 14.5mm 32mm 14cm 6.5cm Conformable Active Control Trunk [id number] - [id number] - [id number] Implanted:Qty: 1 on 06/26/2024 by Gurpreet Arriola MD at [facility] Stent Right: Aorta [employer] [id number] 01/04/2027 [id number] / [id number] / [employer] [place] Excluder 14.5mm 12cm Contralateral Leg Graft Endovascular [id number] - [id number] - [id number] Implanted:Qty: 1 on 06/26/2024 by Min Arriola MD at [facility] Stent Left: Iliac [employer] [id number] 09/03/2024 [id number] / [id number] / [employer] [place] Excluder 14.5mm 12-13.5mm 7cm Upsetter Iliac Artery Graft [id number] - [id number] - [id number] Implanted:Qty: 1 on 06/26/2024 by Gurpreet Arriola MD at [facility] Stent Right: Iliac [employer] [id number] 03/22/2027 [id number] / [id number] / [employer] Excluder 32mm 4.5cm Conformable Active Control Upsetter Aortic [id number] - [id number] - [id number] Implanted:Qty: 1 on 06/26/2024 by Gurpreet Arriola MD at [facility] Right: Iliac [employer] [id number] 11/29/2026 [id number] / [id number] / Procedures Procedure Name Priority Date/Time Associated Diagnosis Comments US DUPLEX SCAN OF AORTA: INFERIOR VENA CAVA, ILIAC, COMPLETE Routine 08/10/2024 10:30 AM CDT Aftercare following surgery of the circulatory system PSA DIAGNOSTIC Routine 08/01/2024 1:52 PM CDT Prostate cancer (HCC) CTA ABDOMEN PELVIS W WO CONTRAST Schedule Routine, Read Routine (OP Routine) 05/25/2024 2:08 PM CRACKING UNIT OPERATOR Aneurysm of infrarenal abdominal aorta, unspecified whether ruptured from Last 3 Months or Most Recently Relevant to Health Maintenance Results * US Duplex Scan of Aorta; Inferior Vena Cava, Iliac, Complete (08/10/2024 10:30 AM CDT) Anatomical Region Laterality Modality Vascular Ultrasound 08/10/2024 9:49 AM CDT Narrative 08/10/2024 2:31 PM CDT Abdominal Aortic Duplex Ultrasound Report Patient Name: JAYRO RAMOS L : 1945 Study Date: 08/10/2024 9:49:19 AM Gender: M Government Operations Consultant: Megan Shaikh Provider: GURPREET ARRIOLA Quality: Adequate Order Provider: GURPREET ARRIOLA PROCEDURES: Arterial Report: Abdominal Aorta Stent Graft Duplex. INDICATIONS: Z48.812 Encounter for surgical aftercare following surgery on the circulatory system. HISTORY: Endovascular aneurysm repair 07/06/2024. COMPARISONS: No prior exams. AAA BY CTA 5.2cm x 5.2cm. STENTS: Velocities Value Location PEVAR RT LIMB Stent [place] Inflow PSV 65.00 cm/sec Stent Prx PSV 53.00 cm/sec Stent Mid PSV 77.00 cm/sec Stent Dst PSV 124.00 cm/sec Stent [place] Outflow PSV 186.00 cm/sec Location 2 PEVAR LT LIMB Stent 2 [place] Inflow PSV 65.00 cm/sec Stent 2 Prx PSV 87.00 cm/sec Stent 2 Mid PSV 54.00 cm/sec Stent 2 Dst PSV 129.00 cm/sec Stent 2 [place] Outflow PSV 162.00 cm/sec MEASUREMENTS: FINDINGS: Study Quality: Technically difficult due to bowel gas. Abdominal Aorta: Infrarenal abdominal aortic aneurysm measurin.7 x 5.1 cm. 2D and color Doppler demonstrate no evidence of endoleak. CONCLUSIONS: 1. Patent endograft no evidence of endoleak. ATTESTATION: I have reviewed and interpreted the pertinent images and measurements of this study. I attest to the conclusions in the final report that is provided above. Electronically Signed By: Min Arriola MD 08/10/2024 2:30:47 PM CDT Procedure Note Min Arriola MD - 08/10/2024 Abdominal Aortic Duplex Ultrasound Report Patient Name: JAYRO RAMOS L : 1945 Study Date: 08/10/2024 9:49:19 AM Gender: M Government Operations Consultant: Megan Shaikh Provider: GURPREET ARRIOLA Quality: Adequate Order Provider: GURPREET ARRIOLA PROCEDURES: Arterial Report: Abdominal Aorta Stent Graft Duplex. INDICATIONS: Z48.812 Encounter for surgical aftercare following surgery on thecirculatory system. HISTORY: Endovascular aneurysm repair 07/06/2024. COMPARISONS: No prior exams. AAA BY CTA 5.2cm x 5.2cm. STENTS: Velocities Value Location PEVAR RT LIMB Stent [place] Inflow PSV 65.00 cm/sec Stent Prx PSV 53.00 cm/sec Stent Mid PSV 77.00 cm/sec Stent Dst PSV 124.00 cm/sec Stent [place] Outflow PSV 186.00 cm/sec Location 2 PEVAR LT LIMB Stent 2 [place] Inflow PSV 65.00 cm/sec Stent 2 Prx PSV 87.00 cm/sec Stent 2 Mid PSV 54.00 cm/sec Stent 2 Dst PSV 129.00 cm/sec Stent 2 [place] Outflow PSV 162.00 cm/sec MEASUREMENTS: FINDINGS: Study Quality: Technically difficult due to bowel gas. Abdominal Aorta: Infrarenal abdominal aortic aneurysm measurin.7 x 5.1 cm. 2D and colorDoppler demonstrate no evidence of endoleak. CONCLUSIONS: 1. Patent endograft no evidence of endoleak. ATTESTATION: I have reviewed and interpreted the pertinent images and measurements ofthis study. I attest to the conclusions in the final report that is provided above. Electronically Signed By: Min Arriola MD 08/10/2024 2:30:47 PM CDT us Gurpreet Arriola MD IMG US PROCEDURES Final Re sult * PSA diagnostic (08/01/2024 1:52 PM CDT) PSA-Total 2.25 <=6.20 ng/mL Comment: Interpretive Data AGE SEX REFERENCE INTERVAL 0 minutes-150 years Female None 0 minutes-49 years Male None 50-59 years Male 0-3.90 60-69 years Male 0-5.40 70-79 years Male 0-6.20 80-150 years Male 0-6.20 The Eleanor PSA Total assay procedure was used. Results from different manufacturers or methods may not be comparable. Serial testing should be performed using the same method. Current interpretive data last revised 21. Testing performed by: [facility], [address] [place] [address]., [id number] Blood 08/01/2024 1:52 PM CDT 08/01/2024 2:11 PM CDT us Rey Hubbard MD LAB BLOOD ORDERABLES Final Resul t [facility] [address] [place] [address] * CTA Abdomen Pelvis (05/25/2024 2:08 PM CRACKING UNIT OPERATOR) Anatomical Region Laterality Modality Body N/A Computed Tomogra phy 05/25/2024 3:01 PM CRACKING UNIT OPERATOR Narrative 05/25/2024 3:27 PM CRACKING UNIT OPERATOR EXAM DESCRIPTION: CTA ABDOMEN PELVIS REASON FOR STUDY: AAA Dx Aneurysm of infrarenal abdominal aorta, in 2018. Sx hx to bladder. 1 yr F/u TECHNIQUE: CTA scan of the abdomen and pelvis performed without and with intravenous and without oral contrast using helical scanning technique with dynamic intravenous contrast injection. Precontrast, arterial, and portal venous phase images of the abdomen and pelvis were acquired. Images reviewed with lung, soft tissue and bone windows. Reconstructed coronal and sagittal MPR images reviewed. All images stored on PACS. 3D MIP images rendered on scanning unit and reviewed at time of interpretation. Automated exposure control was used as a dose optimization technique for this examination. CONTRAST TYPE/DOSE: 100mL of IOVERSOL 350 MG IODINE/ML INTRAVENOUS SYRINGE injected via intravenous COMPARISON: CT angiogram of the abdomen and pelvis 05/06/2023 FINDINGS: VASCULATURE: Redemonstrated infrarenal abdominal aortic aneurysm, measuring 5.2 x 5.2 cm (series 11, image 87). This previously measured 4.9 x 4.7 cm when measured concurrently. A superior short-segment infrarenal abdominal aortic aneurysm measures 3.6 x 3.5 cm (series 11, image 67), stable from the prior exam. There is a stable dissection flap along the left lateral aspect of this aneurysm (series 5, image 142). The takeoff of the right renal artery is approximately 6 mm superior to the origin of the superior most aneurysm. No new arterial aneurysm or dissection. No large vessel occlusion or evidence of flow-limiting stenosis. LOWER CHEST: Partially visualized 2.4 cm left lower lobe lung nodule, characterized as likely benign on prior PET-CT. No acute findings of the lower chest. LIVER: Normal size and contour. Stable 1.9 cm cyst in the left hepatic lobe. GALLBLADDER: No stones identified. No wall thickening or inflammatory changes. BILE DUCTS: No intrahepatic or extrahepatic ductal dilatation. SPLEEN: Normal size. No focal lesions. PANCREAS: No identified cystic or solid masses. Scattered small pancreatic calcifications are redemonstrated. No adjacent inflammation or peripancreatic fluid collections. Pancreatic duct not dilated. ADRENALS: Stable 4.6 cm left adrenal mass. No significant enhancement is demonstrated. KIDNEYS/URINARY TRACT: No identified significant cystic or solid masses. No stones. No hydronephrosis or hydroureter. Symmetric enhancement. Normal bladder. GI: The distal esophagus and stomach are unremarkable. No dilated bowel loops. No obvious wall thickening. Normal appendix. No significant diverticular disease. Prominent colonic stool is noted. PERITONEUM: No ascites or free air. RETROPERITONEUM: No mass or adenopathy. REPRODUCTIVE: No significant abnormality. MUSCULOSKELETAL: No significant abnormality. OTHER: No other abnormality. IMPRESSION: 1. 5.2 cm infrarenal abdominal aortic aneurysm, previously 4.9 cm. 2. A superior 3.6 cm infrarenal abdominal aortic aneurysm is stable from the prior exam. Stable short segment dissection flap within this aneurysm. THIS IS AN ELECTRONICALLY VERIFIED FINAL REPORT 05/25/2024 3:27 PM - Electronically signed by Neo Richard M.D. KR: HANNAH Report ID: [id number] Reading Location: [id number] Procedure Note Neo Richard MD - 05/25/2024 EXAM DESCRIPTION: CTA ABDOMEN PELVIS REASON FOR STUDY: AAA Dx Aneurysm of infrarenal abdominal aorta, in 2018. Sx hx to bladder. 1yr F/u TECHNIQUE: CTA scan of the abdomen and pelvis performed without and with intravenous and without oral contrast using helical scanning techniquewith dynamic intravenous contrast injection. Precontrast, arterial, and portal venous phase images of the abdomen and pelvis were acquired. Images reviewed with lung, soft tissue and bone windows. Reconstructed coronaland sagittal MPR images reviewed. All images stored on PACS. 3D MIP images rendered on scanning unit and reviewed at time of interpretation.Automated exposure control was used as a dose optimization technique for this examination. CONTRAST TYPE/DOSE: 100mL of IOVERSOL 350 MG IODINE/ML INTRAVENOUSSYRINGE injected via intravenous COMPARISON: CT angiogram of the abdomen and pelvis 05/06/2023 FINDINGS: VASCULATURE: Redemonstrated infrarenal abdominal aorticaneurysm, measuring 5.2 x 5.2 cm (series 11, image 87). This previously measured4.9 x 4.7 cm when measured concurrently. A superior short-segment infrarenal abdominal aortic aneurysm measures 3.6x 3.5 cm (series 11, image 67), stable from the prior exam. There is astable dissection flap along the left lateral aspect of this aneurysm (series 5, image 142). The takeoff of the right renal artery is approximately 6 mm superior tothe origin of the superior most aneurysm. No new arterial aneurysm or dissection. No large vessel occlusion orevidence of flow-limiting stenosis. LOWER CHEST: Partially visualized 2.4 cm left lower lobe lung nodule, characterized as likely benign on prior PET-CT. No acute findings of the lower chest. LIVER: Normal size and contour. Stable 1.9 cm cyst in the left hepatic lobe. GALLBLADDER: No stones identified. No wall thickening or inflammatory changes. BILE DUCTS: No intrahepatic or extrahepatic ductal dilatation. SPLEEN: Normal size. No focal lesions. PANCREAS: No identified cystic or solid masses. Scattered smallpancreatic calcifications are redemonstrated. No adjacent inflammation orperipancreatic fluid collections. Pancreatic duct not dilated. ADRENALS: Stable 4.6 cm left adrenal mass. No significant enhancementis demonstrated. KIDNEYS/URINARY TRACT: No identified significant cystic or solid masses.No stones. No hydronephrosis or hydroureter. Symmetric enhancement. Normal bladder. GI: The distal esophagus and stomach are unremarkable. No dilated bowel loops. No obvious wall thickening. Normal appendix. No significant diverticular disease. Prominent colonic stool is noted. PERITONEUM: No ascites or free air. RETROPERITONEUM: No mass or adenopathy. REPRODUCTIVE: No significant abnormality. MUSCULOSKELETAL: No significant abnormality. OTHER: No other abnormality. IMPRESSION: 1. 5.2 cm infrarenal abdominal aortic aneurysm, previously 4.9 cm. 2. A superior 3.6 cm infrarenal abdominal aortic aneurysm is stable fromthe prior exam. Stable short segment dissection flap within this aneurysm. THIS IS AN ELECTRONICALLY VERIFIED FINAL REPORT 05/25/2024 3:27 PM - Electronically signed by Neo Rcihard M.D. KR: HANNAH Report ID: [id number] Reading Location: [id number] Gurpreet Arriola MD IMG CT PROCEDURES Final Re sult from Last 3 Months or Most Recently Relevant to Health Maintenance Insurance [facility] Advance Directives For more information, please contact: [phone] * Full Code (Latest Code Status on File) Date Activated Date Inactivated Comments 06/26/2024 2:21 PM 06/27/2024 3:43 PM * Full Code Date Activated Date Inactivated Comments 08/04/2023 4:57 PM 08/05/2023 5:57 PM Care Teams Design Maker Relationship Specialty Start Date End Date Daniel Curry MD [address] [place] [address] [facility] [address] [place] [address] PCP - General Family Practice 05/07/23 Gurpreet Arriola MD [address] [place] [address] [place] [id number] [place] [address] Surgeon Vascular Surgery 03/09/22 Farooq Vasquez DO [address] [facility] [address] [place] [address] Referring Physician Cardiology 06/30/23 Jackson Bhatia MD [address] [address] Consulting Physician Pulmonary Disease 07/30/23
--- OUTSIDE RECORDS SUMMARY | 2024-10-05 13:42 | XMS_ITS | Encounter Summary ---
Author Organization [facility] Healthcare Address [address] [place] [address] Care Team Providers Care Forming Machine Upkeep Mechanic Name Role Phone Gurpreet Arriola MD Unavailable [phone] Daniel Curry MD Primary Care Provider [phone] Farooq Vasquez DO Unavailable [phone] Jackson Bhatia MD Unavailable [phone] Reason for Referral * MRI/CAT/PET Scan (Routine) - Closed Specialty Diagnoses / Procedures Referred By Lupillo cao Referred To Contact Radiology Diagnoses Pulmonary nodule Procedures CT Chest WO Contrast Jackson Bhatia MD [facility] [address] Phone: tel: fax: [address] [address] Referral ID Status Reason Start Date Expiration Date Visits Re quested Visits Authorized [id number] Closed 04/06/2024 05/06/2025 1 1 Reason for Visit * MRI/CAT/PET Scan (Routine) - Closed Specialty Diagnoses / Procedures Referred By Lupillo cao Referred To Contact Radiology Diagnoses Pulmonary nodule Procedures CT Chest WO Contrast SriramJackson portillo MD [address] [address] Phone: tel: fax: [address] [phone] Referral ID Status Reason Start Date Expiration Date Visits Re quested Visits Authorized [id number] Closed 04/06/2024 05/06/2025 1 1 Encounter Details Date Type Department Care Team (Latest Contact Info) Description 10/04/2024 2:14 PM CDT - 10/04/2024 11:59 PM CDT Hospital Encounter [address] [id number] Pulmonary nodule Discharge Disposition: Discharge to home or self care Social History Tobacco Use Types Packs/Day Years Used Date Smoking Tobacco: Heavy Smoker Cigarettes 2 50 Passive Smoke Exposure: Current Smokeless Tobacco: Former Chew Quit: 05/1999 Comments:Smoking History Pac ks/day: 2 Packs Alcohol Use Standard Drinks/Week Comments No 0 (1 standard drink = 0.6 oz pur e alcohol) [facility] Utilities Answer Date Recorded In the past 12 months has [employer] electric, gas, oil, or water company threatened to shut off services in your [...] often do you attend chur ch or congregational services? Never 06/27/2024 Do you belong to [...] place to sleep or slept in a jail (including now)? No 08/05/2023 Housing Stability Vital Sign Answer Joshua e Recorded In the last 12 months, was t here a time when you were not able to pay the mortgage or rent on time? No 06/27/2024 In the past 12 months, how m any times have you moved where you were living? 0 06/27/2024 At any time in the past 12 m [facility], were you homeless or living in a jail (including now)? No 06/27/2024 Personal Safety Answer Date Recorded Have you ever been in or are you currently in a harmful physical or emotional relationship or is someone making you feel afraid or unsafe? 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 Gender Identity Not on file Sexual Orientation Not on file documented as of this encounter Medications at Time of Discharge amLODIPine (NORVASC) 10 mg tablet Take 1 tablet (10 mg total) by mouth daily 01/19/2022 aspirin (ASPIR-81) 81 mg tablet take 1 tablet by oral route every day 0 0 09/27/2015 atorvastatin (LIPITOR) 40 mg tablet take 1 tablet by oral route every day 30 7 09/27/2015 isosorbide mononitrate ER (IMDUR) 120 mg 24 hr tablet Take 1 tablet (120 mg total) by mouth nightly 06/17/2023 levETIRAcetam (KEPPRA) 500 mg tablet take 1 tablet by oral route 2 times every day 0 0 08/15/2015 losartan-hydroCHL OROthiazide (HYZAAR) 100-12.5 mg per tablet Take 1 tablet by mouth daily 03/08/2024 metoprolol XL (TOPROL-XL) 100 mg 24 hr tablet Take 1 tablet (100 mg total) by mouth every morning 07/14/2023 nitroglycerin (NITROSTAT) 0.[address] 1 tablet by sublingual route at the 1st sign of attack; may repeat every 5 min until relief; if pain persists after 3 tablets in 15 min, prompt medical attention is recommended 0 0 08/15/2015 predniSONE (DELTASONE) 50 mg tablet Take 1 tab 13 hours, 7 hours and 1 hour prior to scan along with 50 MG Benadryl. 3 tablet 05/18/2024 predniSONE (DELTASONE) 50 mg tablet Take 1 tab 13 hours, 7 hours and 1 hour prior to scan along with 50 MG Benadryl. 3 tablet 06/19/2024 ranolazine ER (RANEXA) 500 mg 12 hr tablet Take 1 tablet (500 mg total) by mouth every 12 (twelve) hours 05/28/2023 documented as of this encounter Discharge Disposition Disposition Code Departure Means Destination Discharge to home or self care documented in this encounter Plan of Treatment Pending Results Name Type Priority Associated Diagnoses Date /Time CT Chest WO Contrast Imaging Routine Pulmonary nodule 10/04/2024 2:20 PM CDT Scheduled Orders Name Type Priority Associated Diagnoses Orde r Schedule CT Chest WO Contrast Imaging Routine Pulmonary nodule Once for 1 Occurrences starting 10/04/2024 until 10/04/2024 documented as of this encounter Visit Diagnoses Diagnosis Pulmonary nodule Other diseases of lung, not elsewhere classified documented in this encounter Care Teams Forming Machine Upkeep Mechanic Relationship Specialty Start Date End Date Daniel Curry MD [address] [address] [place] [address] [place] [address] PCP - General Family Practice 05/07/23 Gurpreet Arriola MD [address] [address] [place] [address] [place] [address] Surgeon Vascular Surgery 03/09/22 Farooq Vasquez DO [address] [facility] [address] [place], [place] [id number] Referring Physician Cardiology 06/30/23 Jackson Bhatia MD [address] [place] [address] Consulting Physician Pulmonary Disease 07/30/23 documented as of this encounter
--- OUTSIDE RECORDS SUMMARY | 2024-10-05 13:42 | XMS_ITS | Referral Summary ---
Author Organization [facility] [address] Address [address] [place] [address] Care Team Providers Care Navigating Officer Name Role Phone Gurpreet Arriola MD Unavailable [phone] Daniel Curry MD Primary Care Provider [phone] Farooq Vasquez DO Unavailable [phone] Jackson Bhatia MD Unavailable [phone] Encounters Date Type Department Care Team Description 10/04/2024 2:14 PM CDT - 10/04/2024 11:59 PM CDT Hospital Encounter [facility] [address] [place] [address] Pulmonary nodule Discharge Disposition: Discharge to home or self care 08/17/2024 3:00 PM CDT Office Visit [facility] [address] [place] [phone] Gurpreet Arriola MD Aneurysm of infrarenal abdominal aorta, unspecified whether ruptured (Primary Dx); Other specified symptoms and signs involving the circulatory and respiratory systems; Infrarenal abdominal aortic aneurysm (AAA) without rupture; Dyslipidemia 08/10/2024 9:44 AM CDT - 08/10/2024 11:59 PM CDT Hospital Encounter [facility] Cardiac Testing [address] [place] [address] Aftercare following surgery of the circulatory system Discharge Disposition: Discharge to home or self care 08/01/2024 1:45 PM CDT Lab [facility] [address] [place] [id number] Prostate cancer (HCC) 07/14/2024 Orders Only [facility] Vascular [facility] Vein Surgery [address] [place] [phone] Gurpreet Arriola MD Aftercare following surgery of the circulatory system (Primary Dx) 07/13/2024 2:15 PM [employer] Office Visit [facility] Vascular and Vein Surgery [address] [place] [address] Mela Aggarwal NP Infrarenal abdominal aortic aneurysm (AAA) without rupture (Primary Dx) from Last 3 Months Allergies Active Allergy Reactions Criticality Noted Date [...] by mouth every 12 (twelve) hours 05/28/19 Active albuterol HFA (ProAir HFA) 90 mcg/actuation inhaler Inhale 1 puff every 4 (four) hours as needed for wheezing 1 each 04/06/20 24 Active budesonide-formot Niki (SYMBICORT) 160-4.5 mcg/actuation inhaler Inhale 2 puffs 2 (two) times a day Rinse mouth with water after use. Do not swallow. 1 each 04/06/20 Active losartan-hydroCHL OROthiazide (HYZAAR) 100-12.5 mg per [...] 03/25/2022 Assessment & Plan (03/25/2022 10:39 AM [employer]OTTOM [employer]KER): Impression: Incidental finding of a left lower lobe pulmonary nodule measuring 2.5 x 1.9 cm. Patient has significant smoking history. Plan: Discussed with the patient that he will need to follow-up with his PCP for further evaluation and treatment. Adrenal nodule 03/25/2022 Assessment & Plan (03/25/2022 10:40 AM [employer]OTTOM MAKER): Impression: Incidental finding of a 4 x 3 cm left adrenal nodule on CTA abdomen and pelvis. Plan: Discussed with the patient that he will need to follow up with his primary care provider for further evaluation and treatment. Abdominal aortic aneurysm (AAA) without rupture 02/25/2022 Assessment & Plan (07/14/2024 11:24 AM [employer]OTTOM MAKER): Status post EVAR 06/26/2024. Patient is recovering well does not have any more lower abdominal pain voiding and having normal bowel movement without any issues. Denies any lower extremity claudication symptoms. We will have the patient follow-up in 1 month with aortic duplex. Assessment & Plan (06/20/2024 1:10 PM B[employer]OTT[employer] MAKER): Increased size of his AAA from prior study. It was now measures 5.2 cm. I have recommended proceeding with endograft repair was he will be a good candidate. The procedure indications and all associated risks have been explained. He understands and agrees to proceed. Assessment & Plan (05/13/2023 9:38 AM B[employer] BOTTOM MAKER): Bilobed AAA with the superior portion measuring [...] pelvis. Assessment & Plan (03/25/2022 10:41 AM BESSEMER BOTTOM MAKER): Impression: 4.5 cm bilobed infrarenal abdominal aortic [...] 08/31/2017 Assessment & Plan (06/20/2024 1:10 PM [employer]KER): Hyperlipidemia chronic controlled. Continue Lipitor. Chronic obstructive [...] 03/11/2017 Assessment & Plan (06/20/2024 1:11 PM B[employer]OTT[employer]KER): Hypertension chronic controlled. Continue current medical management. Assessment & Plan (03/25/2022 10:42 AM B[employer]OTT[employer]KER): Impression: Stable chronic hypertension. Plan: Medications reviewed and recommend continuing daily antihypertensive regimen as directed by patient's primary care physician. Assessment & Plan (02/25/2022 8:53 AM CDT): Hypertension chronic and controlled. Continue current medical therapy. Coronary artery disease of n ative artery of [place] heart with stable angina pectoris 03/11/2017 Dyslipidemia 03/11/2017 Assessment & Plan (02/25/2022 8:53 AM CDT): Dyslipidemia chronic and controlled. Continue Lipitor. Immunizations Immunization Administration Dates Next Due Influenza, Quad, Adjuvantated, Intramuscular ,03/03/2021 Influenza, Quadrivalent, Hig h Dose, Preservative Free, Intrr 02/12/2020 Social History Tobacco Use Types Packs/Day Years Used Date Smoking Tobacco: Heavy Smoker Cigarettes 2 50 Passive Smoke Exposure: Current Smokeless Tobacco: Former Chew Quit: 05/1999 Tobacco Cessation:Ready to Q uit: Not Asked; Counseling Given: Not Answered Comments:Smoking History Packs/day: 2 Packs Alcohol Use Standard Drinks/Week Comments No 0 (1 standard drink = 0.6 oz pur e alcohol) ZBD Displaysities Answer Date Recorded In the past 12 months has [employer], gas, oil, or water [employer] threatened to shut off services in your [...] 06/27/2024 How often do you attend chur or mandaeism services? Never 06/27/2024 Do you belong to any clubs o r organizations such as catholic groups, unions, fraternal or athletic groups, or [...] place to sleep or slept in a chcf (including now)? No 08/05/2023 Housing Stability Vital Sign Answer Joshua e Recorded In the last 12 months, was t here a time when you were not able to pay the mortgage or rent on time? No 06/27/2024 In the past 12 months, how m any times have you moved where you were living? 0 06/27/2024 At any time in the past 12 m [facility], were you homeless or living in a chcf (including now)? No 06/27/2024 Personal Safety Answer Date Recorded Have you ever been in or are you currently in a harmful physical or emotional relationship or is someone making you feel afraid or unsafe? Denies 06/26/2024 Sex and Gender Information Value Date Recorded Sex Assigned at Not on file Legal Sex Male 2:50 AM [employer] Gender Identity Not on file Sexual Orientation Not on file Last Filed Vital Signs Vital Sign Reading Time Taken Comments Blood Pressure 155/70 08/17/2024 2:48 PM CDT Pulse 56 08/17/2024 2:48 PM CDT Temperature 36.6 C (97.9 F) 06/27/2024 7:55 AM [employer] Respiratory Rate 20 06/27/2024 7:55 AM [employer] Oxygen Saturation 95% 06/27/2024 7:55 AM [employer] Inhaled Oxygen Concentration - - Weight 78 kg (172 lb) 08/17/2024 2:48 PM CDT Height 186.7 cm (6' 1.5 ) 08/17/2024 2:48 PM CDT Body Mass Index 22.38 08/17/2024 2:48 PM CDT Plan of Treatment Not on file Medical Devices Implanted Type Area Accountant Auditor Device Identifier Shelf Expiration Date Model / Serial / Lot Stent Stent Heart [employer] Excluder 14.5mm 32mm 14cm 6.5cm Conformable Active Control Trunk [id number] - [id number] - [id number] Implanted:Qty: 1 on 06/26/2024 by Gurpreet Arroila MD at [facility] Stent Right: Aorta [employer] [id number] 01/04/2027 [id number] / [id number] / [employer] [place] Excluder 14.5mm 12cm Contralateral Leg Graft Endovascular [id number] - [id number] - [id number] Implanted:Qty: 1 on 06/26/2024 by Min Arriola MD at [facility] Stent Left: Iliac [employer] [id number] 09/03/2024 [id number] / [id number] / [employer] [place] Excluder 14.5mm 12-13.5mm 7cm Tafe Teacher Iliac Artery Graft [id number] - [id number] - [id number] Implanted:Qty: 1 on 06/26/2024 by Gurpreet Arriola MD at [facility] Stent Right: Iliac [employer] [id number] 03/22/2027 [id number] / [id number] / [employer] Excluder 32mm 4.5cm Conformable Active Control Tafe Teacher Aortic [id number] - [id number] - [id number] Implanted:Qty: 1 on 06/26/2024 by Gurpreet Arriola MD at [facility] Right: Iliac [employer] [id number] 11/29/2026 [id number] / [id number] / Procedures Procedure Name Priority Date/Time Associated Diagnosis Comments US DUPLEX SCAN OF AORTA: INFERIOR VENA CAVA, ILIAC, COMPLETE Routine 08/10/2024 10:30 AM CDT Aftercare following surgery of the circulatory system PSA DIAGNOSTIC Routine 08/01/2024 1:52 PM CDT Prostate cancer (HCC) CTA ABDOMEN PELVIS W WO CONTRAST Schedule Routine, Read Routine (OP Routine) 05/25/2024 2:08 PM [employer] Aneurysm of infrarenal abdominal aorta, unspecified whether [...] Study Date: 08/10/2024 9:49:19 AM Gender: M Ladies' Hat Trimmer: Megan Shaikh Provider: GURPREET ARRIOLA Quality: Adequate Order Provider: GURPREET ARRIOLA PROCEDURES: Arterial Report: Abdominal Aorta Stent Graft Duplex. INDICATIONS: Z48.812 Encounter for surgical aftercare following surgery on the circulatory system. HISTORY: Endovascular aneurysm repair 07/06/2024. COMPARISONS: No prior exams. AAA BY CTA 5.2cm x 5.2cm. STENTS: Velocities Value Location PEVAR RT LIMB Stent [place] Inflow PSV 65.00 cm/sec Stent Prx PSV 53.00 cm/sec Stent Mid PSV 77.00 cm/sec Stent Dst PSV 124.00 cm/sec Stent [place] Outflow PSV 186.00 cm/sec Location 2 PEVAR LT LIMB Stent 2 [place] Inflow PSV 65.00 cm/sec Stent 2 Prx PSV 87.00 cm/sec Stent 2 Mid PSV 54.00 cm/sec Stent 2 Dst PSV 129.00 cm/sec Stent 2 [place] Outflow PSV 162.00 cm/sec MEASUREMENTS: FINDINGS: Study [...] Study Date: 08/10/2024 9:49:19 AM Gender: M Ladies' Hat Trimmer: Megan Shaikh Ref Provider: GURPREET ARRIOLA Quality: Adequate Order Provider: GURPREET ARRIOLA PROCEDURES: Arterial Report: Abdominal Aorta Stent Graft Duplex. INDICATIONS: Z48.812 Encounter for surgical aftercare following surgery on thecirculatory system. HISTORY: Endovascular aneurysm repair 07/06/2024. COMPARISONS: No prior exams. AAA BY CTA 5.2cm x 5.2cm. STENTS: Velocities Value Location PEVAR RT LIMB Stent [place] Inflow PSV 65.00 cm/sec Stent Prx PSV 53.00 cm/sec Stent Mid PSV 77.00 cm/sec Stent Dst PSV 124.00 cm/sec Stent [place] Outflow PSV 186.00 cm/sec Location 2 PEVAR LT LIMB Stent 2 [place] Inflow PSV 65.00 cm/sec Stent 2 Prx PSV 87.00 cm/sec Stent 2 Mid PSV 54.00 cm/sec Stent 2 Dst PSV 129.00 cm/sec Stent 2 [place] Outflow PSV 162.00 cm/sec MEASUREMENTS: FINDINGS: Study [...] data last revised 21. Testing performed by: [facility], [address] [place] [address]., [id number] Blood 08/01/2024 1:52 PM CDT 08/01/2024 2:11 PM CDT us Rey Hubbard MD LAB BLOOD ORDERABLES Final Resul t [facility] [address] Department [place] [address] * CTA Abdomen Pelvis (05/25/2024 2:08 PM [employer]OTT[employer]KER) Anatomical Region Laterality Modality Body N/A Computed Tomogra phy 05/25/2024 3:01 PM [employer] Narrative 05/25/2024 3:27 PM [employer] EXAM DESCRIPTION: CTA ABDOMEN PELVIS REASON FOR [...] Neo Richard M.D. KR: HANNAH Report ID: [id number] Reading Location: [place] [address] Procedure Note Neo Richard MD - 05/25/2024 [...] Electronically signed by Neo Richard M.D. KR: KR Report ID: [id number] Reading Location: [place] [address] Gurpreet Arriola MD IMG CT PROCEDURES Final Re sult from Last 3 Months or Most Recently Relevant to Health Maintenance Insurance [facility] Advance Directives For more information, please contact: [phone] * Full Code (Latest Code Status on File) Date Activated Date Inactivated Comments 06/26/2024 2:21 PM 06/27/2024 3:43 PM * Full Code Date Activated Date Inactivated Comments 08/04/2023 4:57 PM 08/05/2023 5:57 PM Care Teams Navigating Officer Relationship Specialty Start Date End Date Daniel Curry MD [address] [place] [facility] [address] [address] PCP - General Family Practice 05/07/23 Gurpreet Arriola MD [address] [place] [facility] [address] [address] Surgeon Vascular Surgery 03/09/22 Farooq Vasquez DO [address] [place] [id number] Referring Physician Cardiology 06/30/23 Jackson Bhatia MD [address] [place] [address] Consulting Physician Pulmonary Disease 07/30/23
== END 2024-10-05 13:39 | disposition home or self-care (01) ==
LOC: ANHAUDIO 13:39
PROVIDERS: PCP Family Medicine; Visit Provider Family Medicine
DX: H91.90 Unspecified hearing loss, unspecified ear (principal)
CPT/HCPCS: 99199